=== PATIENT | female | born 1980 | race Caucasian/White ===

== ENCOUNTER 2024-10-22 07:39 | Outpatient (OUT) | payer OTHER, SELFPAY ==
[2024-10-22 08:08] LABS: Basophils Absolute Auto 0.1 10^3/uL (0.0-0.1); Basophils Percent Auto 1.1 % (0.2-2.0); Eosinophils Absolute Auto 0.1 10^3/uL (0.0-0.7); Eosinophils Percent Auto 0.9 % (0.9-7.0); Hematocrit 42.4 % (36.0-48.0); Hemoglobin 14.4 g/dL (12.0-16.0); Immature Granulocytes Abs Auto 0.02 10^3/uL (0.00-0.03); Immature Granulocytes Pct Auto 0.3 % (0.0-0.5); Lymphocytes Absolute Auto 1.1 10^3/uL (1.2-3.8); Lymphocytes Percent Auto 16.9 % (20.5-60.0); Mean Corpuscular Hemoglobin 32.3 pg (26.7-34.0); Mean Corpuscular Volume 95.1 fL (81.0-99.0); Mean Platelet Volume 10.3 fL (9.5-13.5); Monocytes Absolute Auto 0.4 10^3/uL (0.3-0.8); Monocytes Percent Auto 6.5 % (1.7-12.0); Neutrophils Absolute Auto 4.8 10^3/uL (1.4-6.5); Neutrophils Percent Auto 74.3 % (43.0-75.0); Platelet Count 191 10^3/uL (150-450); Red Blood Count 4.46 10^6/uL (4.20-5.40); Red Cell Distribution Width 12.4 % (11.0-15.0); White Blood Count 6.5 10^3/uL (4.0-11.0)
[2024-10-22 09:33] LABS: Estimated Average Glucose 94 mg/dL; Glycohemoglobin A1C 4.9 % (4.5-6.2)
[2024-10-22 09:46] LABS: Alanine Aminotransferase 28 U/L (14-59); Albumin Globulin Ratio 1.3; Albumin Level 4.4 g/dL (3.4-5.0); Alkaline Phosphatase 65 U/L (46-116); Anion Gap 12.8; Aspartate Amino Transferase 21 U/L (15-37); BUN Creatinine Ratio 31.5; Bilirubin Total 0.7 mg/dL (0.2-1.0); Calcium 9.4 mg/dL (8.5-10.1); Carbon Dioxide 28.3 mmol/L (21.0-32.0); Chloride 104 mmol/L (98-107); Chol HDL Ratio 2.8; Cholesterol 196 mg/dL (<=200); Estimated GFR (African America >60 (>=60 mL/min/1.73m^2); Estimated GFR (Non-African Ame >60 (>=60 mL/min/1.73m^2); Globulin 3.4 g/dL; Glucose 87 mg/dL (74-106); HDL Cholesterol 70 mg/dL (40-60); Potassium 4.1 mmol/L (3.5-5.1); Sodium 141 mmol/L (136-145); Total Protein 7.8 g/dL (6.4-8.2); Triglycerides 84 mg/dL (<=150); VLDL CHOLESTEROL 16.8 mg/dL
[2024-10-22 10:15] LABS: Free T4 0.93 ng/dL (0.76-1.46)
[2024-10-23 03:08] LABS: Insulin 4.4 uIU/mL (2.6-24.9)
== END 2024-10-22 07:40 | disposition home or self-care (01) ==
PROVIDERS: PCP Family Medicine
DX: R63.5 Abnormal weight gain (principal); E03.9 Hypothyroidism, unspecified
CPT/HCPCS: 36415; 80053; 80061; 83036; 83525; 84439; 84443; 85025

== ENCOUNTER 2024-11-18 08:32 | Outpatient (OUT) | payer OTHER, SELFPAY ==
--- NOTE | 2024-11-18 08:35 | MM_ITS ---
Patient Name: SARAH DE LUNA MR#: [id number] : 1980 Exam Date: 11/18/2024 Ordering Doctor: DR. FLORENCIA TORRES D.O. RADIOLOGY REPORT PROCEDURE: MM TOMOSYNTHESIS SCREENING BI COMPARISON: MM TOMOSYNTHESIS SCREENING BI, 11/16/2023. MG MAMM SCREEN 3D KAREN CAD, 11/02/2022. MG MAMM SCREEN 3D KAREN CAD, 08/30/2021. MG MAMM SCREEN KAREN W CAD, 08/24/2020. INDICATIONS: Screening Calculator Name NCI Breast Cancer Risk Assessment Tool 5 Year Breast Cancer Risk 1.20% Lifetime Breast Cancer Risk 10.40% Personal Breast Cancer No Personal Ovarian Cancer No Treatments None Family Cancers Father with kidney cancer at age 67; Grandfather-paternal with lung cancer at age ~65; Grandmother-maternal with cervical cancer at age ~67; Mother with skin cancer at age 64. LOCATION: [facility] BREAST COMPOSITION: The breasts are heterogeneously dense,which may obscure small masses. FINDINGS: DIAGNOSTIC CATEGORY 0--INCOMPLETE: NEED ADDITIONAL IMAGING EVALUATION. LEFT BREAST: No significant suspicious finding. Asymmetry medial aspect of the right breast, middle depth on cc view only. RECOMMENDATIONS: ADDITIONAL MAMMOGRAPHIC VIEWS REQUIRED: RIGHT BREAST - spot-compression/true lateral views , possible ultrasound recommended. PLEASE NOTE: A NORMAL MAMMOGRAM DOES NOT EXCLUDE THE POSSIBILITY OF BREAST CANCER. A CLINICALLY SUSPICIOUS PALPABLE LUMP SHOULD BE BIOPSIED. Dictated by: Jose Kamara DO on 11/18/2024 at 15:33 Approved by: Jose Kamara DO on 11/18/2024 at 15:38
== END 2024-11-18 08:33 | disposition home or self-care (01) ==
LOC: MAMMO 08:33
PROVIDERS: PCP Family Medicine; Visit Provider Obstetrics & Gynecology
DX: Z12.31 Encounter for screening mammogram for malignant neoplasm of breast (principal); Z80.51 Family history of malignant neoplasm of kidney; Z80.1 Family history of malignant neoplasm of trachea, bronchus and lung; Z80.8 Family history of malignant neoplasm of other organs or systems; R92.8 Other abnormal and inconclusive findings on diagnostic imaging of breast
CPT/HCPCS: 77063; 77067

== ENCOUNTER 2025-05-16 08:30 | Outpatient (OUT) | payer OTHER, SELFPAY ==
--- OUTSIDE RECORDS SUMMARY | 2025-05-16 08:33 | XMS_ITS | Clinical Summary ---
Author Organization [email or web address] Address [facility] [id number] [address] [place] [address] Care Team Providers Care Elevator Operator Service Name Role Phone Unavailable Primary Care Provider Unavailabl e Social History Tobacco Use Types Packs/Day Years Used Date Smoking Tobacco: Never Assessed Childcare Answer Date Recorded Childcare Unknown 02/19/2019 Employment Answer Date Recorded Employment Unknown 02/19/2019 Purpose - Life Answer Date Recorded Purpose and direction in life Unknown Comments Unknown Sex and Gender Information Value Date Recorded Sex Assigned at Not on file Legal Sex Female 6:51 PM EDT Gender Identity Not on file Sexual Orientation Not on file Plan of Treatment Health Maintenance Due Date Last Done Comments Depression Screening 1990 Tobacco Screening 1990 Adult BMI Screening 1996 DTaP,Tdap and Td Vaccines (1 - Tdap) 1997 Pap Smear 12/02/1999 Influenza Vaccine 05/12/2025 Medical Devices Not on file Insurance [employer]
--- OUTSIDE RECORDS SUMMARY | 2025-05-16 08:33 | XMS_ITS | Encounter Summary ---
Author Organization [facility] Address [address] [place] [address] Care Team Providers Care Sourcing Internship Name Role Phone Mata Emery DO Primary Care Provider +1- [phone] Mata Emery DO Unavailable [phone] Encounter Details Date Type Department Care Team (Late st Contact Info) Description 04/06/2023 Abstract [facility] [address] [place] [address] Mata Emery, DO [address] Luis Manuel [address] [place] [address] Social History Tobacco Use Types Packs/Day Years Used Date Smoking Tobacco: Never Smokeless Tobacco: Never Alcohol Use Standard Drinks/Week Comments Yes 1 (1 standard drink = 0.6 oz pur e alcohol) PHQ-2 Answer Date Recorded Patient Health Questionnaire-2 Score 0 04/06/2023 Comments Unknown Sex and Gender Information Value Date Recorded Sex Assigned at Not on file Legal Sex Female 7:11 PM EDT Gender Identity Not on file Sexual Orientation Not on file documented as of this encounter Functional Status * Over the past 2 weeks, how often have you been bothered by any of the following problems? Question Answer Date of Assessment Author Little interest or pleasure in doing things Not at all 04/06/2023 11:10 AM EDT Kayce Meneses L PN Feeling down, depressed, or hopeless Not at all 04/06/2023 11:10 AM EDT Kayce Meneses L PN Patient Health Questionnaire -2 Score 0 04/06/2023 11:10 AM EDT Kayce Meneses L PN documented as of this encounter Plan of Treatment Upcoming Encounters Date Type Department Care Team (Late st Contact Info) Description 03/18/2026 9:45 AM EDT Office Visit [facility] [address] [place] MANUEL D [address] [phone] Judith Jacob DO [address] [phone] documented as of this encounter Visit Diagnoses Not on filedocumented in this encounter Care Teams Sourcing Internship Relationship Specialty Start Date End Date Mata Emery DO [address] Luis Manuel [address] [place] [address] PCP - General Family Medicine 04/06/23 Mata Emery DO [address] Luis Manuel [address] [place] [address] PCP - Juan José Commercial 05/12/23 documented as of this encounter
--- OUTSIDE RECORDS SUMMARY | 2025-05-16 08:33 | XMS_ITS | Encounter Summary ---
Author Organization [facility] Address [address] [place] [address] Care Team Providers Care Oyster Washer Name Role Phone Mata Emery DO Primary Care Provider [phone]- [phone] Encounter Details Date Type Department Care Team (Late st Contact Info) Description 11/06/2024 Abstract [facility] [address] [place] [phone] Mata Emery DO [address] Luis Manuel [address] [place] [address] Social History Tobacco Use Types Packs/Day Years Used Date Smoking Tobacco: Never Smokeless Tobacco: Never Alcohol Use Standard Drinks/Week Comments Yes 1 (1 standard drink = 0.6 oz pur e alcohol) caffeine intake : soda weekly PHQ-2 Answer Date Recorded Patient Health Questionnaire-2 Score 0 03/12/2024 Comments No Sex and Gender Information Value Date Recorded Sex Assigned at Not on file Legal Sex Female 7:11 PM EDT Gender Identity Not on file Sexual Orientation Not on file documented as of this encounter Plan of Treatment Upcoming Encounters Date Type Department Care Team (Late st Contact Info) Description 03/18/2026 9:45 AM EDT [facility] [address] [place] MANUEL D [address] [address] Judith Jacob DO [address] [address] documented as of this encounter Visit Diagnoses Not on filedocumented in this encounter Care Teams Oyster Washer Relationship Specialty Start Date End Date Mata Emery DO [address] [facility] [address] [place] [address] PCP - General Family Medicine 04/06/23 documented as of this encounter
--- OUTSIDE RECORDS SUMMARY | 2025-05-16 08:33 | XMS_ITS | Encounter Summary ---
Author Organization [facility] Address [address] [place] [address] Care Team Providers Care Metal Bumper Name Role Phone Mata Emery Alejandro MAGDALENO Primary Care Provider [phone]- [phone] Encounter Details Date Type Department Care Team (Late st Contact Info) Description 07/03/2024 Orders Only [facility] [address] [facility] Medical [address] [address] Judith Jacob DO [address] [address] Social History Tobacco Use Types Packs/Day Years [...] EDT Office Visit [facility] [address] [facility] [address] [address] Judith Jacob DO [address] [address] documented as of this encounter Procedures Procedure Name Priority Date/Time Associated Diagnosis Comments CBC WITH AUTO DIFFERENTIAL Routine 07/03/2024 11:23 AM EDT ABO GROUP AND RH TYPE Routine 07/03/2024 11:23 AM EDT COMPREHENSIVE METABOLIC PANEL Routine 07/03/2024 11:23 AM EDT CBC WITH AUTO DIFFERENTIAL Routine 07/01/2024 11:21 AM EDT ABO GROUP AND RH TYPE Routine 07/01/2024 11:21 AM EDT COMPREHENSIVE METABOLIC PANEL Routine 07/01/2024 11:21 AM EDT documented in this encounter Results * CBC auto differential (07/03/2024 11:23 AM EDT) Blood Venous blood specimen / Unknown [employer] DO LAB BLOOD ORDERABLES Final Result * Comprehensive metabolic panel (07/03/2024 11:23 AM EDT) Blood Venous blood specimen / Unknown [employer] NataprMolecule Softwarera DO LAB BLOOD ORDERABLES Final Result * ABO/Rh (07/03/2024 11:23 AM EDT) Blood Venous blood specimen / Unknown [employer] DO LAB BLOOD ORDERABLES Final Result * CBC auto differential (07/01/2024 11:21 AM EDT) Blood Venous blood specimen / Unknown [employer] Nataprawira DO LAB BLOOD ORDERABLES Final Result * Comprehensive metabolic panel (07/01/2024 11:21 AM EDT) Blood Venous blood specimen / Unknown [employer] Nataprawira DO LAB BLOOD ORDERABLES Final Result * ABO/Rh (07/01/2024 11:21 AM EDT) Blood Venous blood specimen / Unknown Judith Jacob DO LAB BLOOD ORDERABLES Final Result documented in this encounter Visit Diagnoses Not on filedocumented in this encounter Care Teams Metal Bumper Relationship Specialty Start Date End Date Mata Emery DO [address] [facility] 230 [place] [address] PCP - General Family Medicine 04/06/23 documented as of this encounter
--- OUTSIDE RECORDS SUMMARY | 2025-05-16 08:33 | XMS_ITS | Encounter Summary ---
Author Organization [facility] Address [address] [place] [address] Care Team Providers Care Animal Damage Control Agent Name Role Phone Mata Emery DO Primary Care Provider [phone]- [phone] Encounter Details Date Type Department Care Team (Late st Contact Info) Description 07/31/2024 Abstract [facility] [address] [address] [place] [phone] Mata Emery DO [address] Luis Manuel [address] [place] [address] Social History Tobacco Use Types Packs/Day Years [...] AM EDT Office Visit [facility] [address] [place] MANUEL D [address] [address] Judith Jacob DO [address] [phone] documented as of this encounter Visit Diagnoses Not on filedocumented in this encounter Care Teams Animal Damage Control Agent Relationship Specialty Start Date End Date Mata Emery DO [address] [facility] [address] [place] [address] PCP - General Family Medicine 04/06/23 documented as of this encounter
--- OUTSIDE RECORDS SUMMARY | 2025-05-16 08:33 | XMS_ITS | Encounter Summary ---
Author Organization [facility] Address [address] [place] [address] Care Team Providers Care Clamp Operator Name Role Phone Mata Emery DO Primary Care Provider +1- [phone] Encounter Details Date Type Department Care Team (Late Contact Info) Description 11/11/2024 Orders Only [facility] [address] [facility] Medical [address] [address] Stephanie Quiroz MA Other screening mammogram Social History Tobacco Use Types Packs/Day Years [...] Encounters Date Type Department Care Team (Late Contact Info) Description 03/18/2026 9:45 AM EDT Office Visit [facility] [address] [facility] [address] [phone] Judith Jacob DO [address] [place] [address] [place] [address] documented as of this encounter Visit Diagnoses Diagnosis Other screening mammogram documented in this encounter Care Teams Clamp Operator Relationship Specialty Start Date End Date Mata Emery DO [address] [facility] 230 [place] [address] PCP - General Family Medicine 04/06/23 documented as of this encounter
--- OUTSIDE RECORDS SUMMARY | 2025-05-16 08:33 | XMS_ITS | Encounter Summary ---
Author Organization [facility] Address [address] [place] [address] Care Team Providers Care Kiln Head House Operator Name Role Phone Mata Emery DO Primary Care Provider +1- [phone] Encounter Details Date Type Department Care Team (Late st Contact Info) Description 12/04/2024 Abstract [facility] [address] MAN[address] [place] [phone] Mata Emery DO [address] Luis Manuel [address] [place] [address] Social History Tobacco Use Types Packs/Day Years [...] AM EDT Office Visit [facility] [address] [place] MANUEL D [address] [phone] Judith Jacob DO [address] [phone] documented as of this encounter Visit Diagnoses Not on filedocumented in this encounter Care Teams Kiln Head House Operator Relationship Specialty Start Date End Date Mata Emery DO [address] [facility] 230 [place] [address] PCP - General Family Medicine 04/06/23 documented as of this encounter
--- OUTSIDE RECORDS SUMMARY | 2025-05-16 08:33 | XMS_ITS | Encounter Summary ---
Author Organization [facility] Address [address] [place] [address] Care Team Providers Care Flattening Machine Operator Name Role Phone Mata Emery DO Primary Care Provider +1- [phone] Encounter Details Date Type Department Care Team (Late Contact Info) Description 03/19/2024 Orders Only [facility] [address] [facility] Medical [address] [address] Stephanie Quiroz MA Social History Tobacco Use Types Packs/Day Years [...] EDT Office Visit [facility] [address] [facility] [address] [address] Judith Jacob DO [address] [address] documented as of this encounter Visit Diagnoses Not on filedocumented in this encounter Care Teams Flattening Machine Operator Relationship Specialty Start Date End Date Mata Emery DO [address] [facility] [address] [place] [phone] PCP - General Family Medicine 04/06/23 documented as of this encounter
--- OUTSIDE RECORDS SUMMARY | 2025-05-16 08:33 | XMS_ITS | Encounter Summary ---
Author Organization [facility] Address [address] [place] [address] Care Team Providers Care Dobie Worker Name Role Phone Mata Emery DO Primary Care Provider +1- [phone] Encounter Details Date Type Department Care Team (Late Contact Info) Description 11/20/2024 Orders Only [facility] [address] [place] MAN[address] [place] [address] Mata Emery DO [address] Luis Manuel [address] [place] [address] Social History Tobacco Use Types Packs/Day Years [...] EDT Office Visit [facility] [address] [place] MANUEL D [address] [address] Judith Jacob DO [address] [address] documented as of this encounter Procedures Procedure Name Priority Date/Time Associated Diagnosis Comments BI MAMMOGRAM SCREENING BILATERAL Routine 11/18/2024 10:07 AM EDT documented in this encounter Results * Bilateral screening mammogram (11/18/2024 10:07 AM EDT) Anatomical Region Laterality Modality Breast Bilateral Mammography us Mata Emery DO IMG BI PROCEDURES Final Re sult documented in this encounter Visit Diagnoses Not on filedocumented in this encounter Care Teams Dobie Worker Relationship Specialty Start Date End Date Mata Emery DO [address] [facility] [address] [place] [phone] PCP - General Family Medicine 04/06/23 documented as of this encounter
--- OUTSIDE RECORDS SUMMARY | 2025-05-16 08:33 | XMS_ITS | Encounter Summary ---
Author Organization [facility] Address [address] [place] [address] Care Team Providers Care Tuber Helper Name Role Phone Mata Emery DO Primary Care Provider +1- [phone] Reason for Visit * Reason Comments Med Refill Encounter Details Date Type Department Care Team (Late Contact Info) Description 03/24/2025 [facility] [address] [place] [address] [place] [address] Mata Emery DO [address] Luis Manuel [address] [place] [address] Acquired hypothyroidism Social History Tobacco Use Types Packs/Day Years [...] AM EDT Office Visit [facility] [address] [place] MAN[place] D [address] [phone] Judith Jacob DO [address] [address] documented as of this encounter Visit Diagnoses Diagnosis Acquired hypothyroidism Unspecified hypothyroidism documented in this encounter Care Teams Tuber Helper Relationship Specialty Start Date End Date Mata Emery DO [address] [address] PCP - General Family Medicine 04/06/23 documented as of this encounter
--- OUTSIDE RECORDS SUMMARY | 2025-05-16 08:33 | XMS_ITS | Clinical Summary ---
Author Organization [facility] Address [address], [address] [place] [address] Care Team Providers Care Senior Solutions Architect Name Role Phone Mata Emery DO Primary Care Provider +1- [phone] Allergies Active Allergy Reactions Criticality Noted Date Comments Codeine High 12/30/2016 Tetracycline High 12/30/2016 Medications SYNTHROID 25 MCG tablet Take 1 tablet by mouth daily 09/15/2019 Active spironolactone (ALDACTONE) 25 MG tablet Take 1 tablet by mouth daily 08/26/2019 Active Social History Tobacco Use Types Packs/Day Years Used Date Smoking Tobacco: Never Smokeless Tobacco: Never Comments Unknown Sex and Gender Information Value Date Recorded Sex Assigned at Not on file Legal Sex Female 6:14 PM EST Gender Identity Not on file Sexual Orientation Not on file Last Filed Vital Signs Vital Sign Reading Time Taken Comments Blood Pressure 125/74 10/31/2019 10:39 AM EST Pulse 80 10/31/2019 10:39 AM EST Temperature - - Respiratory Rate - - Oxygen Saturation - - Inhaled Oxygen Concentration - - Weight 65.8 kg (145 lb) 10/31/2019 10:39 AM EST stated Height 172.7 cm (5' 8 ) 10/31/2019 10:39 AM EST stated Body Mass Index 22.05 10/31/2019 10:39 AM EST Plan of Treatment Not on file Care Teams Senior Solutions Architect Relationship Specialty Start Date End Date Mata Emery DO PCP - General 05/22/15
--- OUTSIDE RECORDS SUMMARY | 2025-05-16 08:33 | XMS_ITS | Clinical Summary ---
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 3 Active tretinoin (Retin-A) 0.01 % gel Apply topically at bedtime. Active Multiple Vitamin (MULTIVITAMIN PO) Take by mouth Active Cholecalciferol (Vitamin D) 10 MCG/ML liquid Take by mouth Ac tive fluocinolone (Synalar) 0.01 % external solution APPLY TO AFFECTED AREAS OF IRRITATION DAILY IF NEEDED FOR FLARES 3 Active dexAMETHasone (Decadron) 6 MG tabletIndications: Non-recurrent acute suppurative otitis media of right ear without spontaneous rupture of tympanic membrane Take 1 tablet (6 mg) by mouth Daily for 7 days 7 tablet 4 Active nystatin-triamcino lone (Mycolog II) creamIndications:V ulvar irritation Apply topically 2 (two) times a day To affected area as needed 15 g 4 Active levothyroxine (Synthroid, Levoxyl) 25 MCG tabletIndications: Acquired hypothyroidism Take 1 tablet (25 mcg) by mouth in the morning. Take before meals. 90 tablet 1 5 026 Active estradiol (Reyna) 0.05 MG/24HRIndications :Postmenopausal HRT (hormone replacement therapy),Night sweats Place 1 patch on the skin 1 (one) time per week 12 patch 3 Active Active Problems Problem Noted Date Diagnosed Date Acquired hypothyroidism 04/06/2023 Reactive airway disease without complication Resolved Problems Problem Noted Date Diagnosed Date Resolved Date Asthmatic bronchitis 04/06/2023 023 Chronic fatigue 04/06/2023 04/06/2023 Encounters Date Type Department Care Team Description 03/24/2025 Refill [facility] [address] [place] [address] Mata Emery DO Acquired hypothyroidism 03/20/2025 [facility]phone [facility] [address] [place] [id number] Lucila Cueto LPN 03/17/2025 8:30 AM EDT Office Visit [facility] [address] [place] [address] Judith Jacob DO Encounter for gynecological examination without abnormal finding (Primary Dx); Postmenopausal HRT (hormone replacement therapy); Night sweats; History of robot-assisted laparoscopic hysterectomy; Screening breast examination 03/17/2025 Travel from Last 3 Months Family History Medical History Relation Name Comments No Known Problems Daughter Diabetes Father Hypertension Father Kidney cancer Father Breast cancer Maternal Grandmother Cervical cancer Maternal Grandmother Skin cancer Mother Breast cancer Other No Known Problems Son Relation Name Status Comments Brother Alive 1 brother Daughter Alive 1 daughter Father Alive Maternal Grandmother Mother Alive Other great grandma m aternal Son Alive 1 son Social History Tobacco Use Types Packs/Day Years Used Date Smoking Tobacco: Never Smokeless Tobacco: Never Tobacco Cessation:Counseling Given: Yes Alcohol Use Standard Drinks/Week Comments Yes 1 [...] Sign Reading Time Taken Comments Blood Pressure 114/70 03/17/2025 8:40 AM EDT Pulse 91 11/23/2023 3:42 PM EDT Temperature 36.8 C (98.2 F) 11/23/2023 3:42 PM EDT Respiratory Rate - - Oxygen Saturation 99% 11/23/2023 3:42 PM EDT Inhaled Oxygen Concentration - - Weight 72.6 kg (160 lb) 03/17/2025 8:40 AM EDT Height 170.2 cm (5' 7 ) 11/23/2023 3:42 PM EDT Body Mass Index 25.06 11/23/2023 3:42 PM EDT Plan of Treatment Upcoming Encounters Date Type Department Care Team (Late st Contact Info) Description 03/18/2026 9:45 AM EDT Office Visit [facility] [address] [phone] Judith Jacob DO [address] [phone] Health Maintenance Due Date Last Done Comments CT Colonography 1978 Colonoscopy 1978 FIT 1978 FOBT 1978 Sigmoidoscopy 1978 Influenza Vaccine (#1) 2025 Mammogram 11/18/2025 11/18/2024, 03/0 03/2024, 11/02/2022, Additional history exists Colorectal Cancer Screening 01/22/2027 FIT-DNA 01/22/2027 01/23/2024 HPV/Cotest Discontinued 06/25/2018 Cervical Cancer Screening Discontinued Pap Smear Discontinued 09/07/2022 Procedures Procedure Name Priority Date/Time Associated Diagnosis Comments BI MAMMOGRAM SCREENING BILATERAL Routine 11/18/2024 10:07 AM EDT LAB COLOGUARD COLON CANCER SCREEN Routine 01/23/2024 9:11 AM EDT Screening for colorectal cancer PAP SMEAR Routine 09/07/2022 12:00 AM EST THINPREP AND HPV Routine 06/25/2018 12:0 0 PM EDT from Last 3 Months or Most Recently Relevant to Health Maintenance Results * Bilateral screening mammogram (11/18/2024 10:07 AM EDT) Anatomical Region Laterality Modality Breast Bilateral Mammography Mata Emery DO IMG BI PROCEDURES Final Re sult * Cologuard?? colon cancer screening (01/23/2024 9:11 AM EDT) NONINV COLON CA DNA+OCC BLD SCRN STL-IMP Negative Negative 01/30/2024 8:26 PM EDT [facility] (CLIA #:[id number]) Comment: NEGATIVE TEST RESULT. A negative Cologuard result indicates a low likelihood that a colorectal cancer (CRC) or advanced adenoma (adenomatous polyps with more advanced pre-malignant features) is present. The chance that a person with a negative Cologuard test has a colorectal cancer is less than 1 in 1500 (negative predictive value >99.9%) or has an advanced adenoma is less than 5.3% (negative predictive value 94.7%). These data are based on a prospective cross-sectional study of 10,000 individuals at average risk for colorectal cancer who were screened with both Cologuard and colonoscopy. (Casper Gross al, N Engl J Med 2014;370(14):7066-8763) The normal value (reference range) for this assay is negative. COLOGUARD RE-SCREENING RECOMMENDATION: Periodic colorectal cancer screening is an important part of preventive healthcare for asymptomatic individuals at average risk for colorectal cancer. Following a negative Cologuard result, the [place] [employer] Society and U.S. Multi-Society Task Force screening guidelines recommend a Cologuard re-screening interval of 3 years. References: [place] [employer] Guideline for Colorectal Cancer Screening: https://www.cancer.org/cancer/cciaq-wntotb-tiquhv/erhflndjd-wtlmcqyhf-qvdfqyq/ac s-rec ommendations.html.; Nestor HENDRICKSON, Christal SILVA, Meche MOISE, Colorectal Cancer Screening: Recommendations for Physicians and Patients from the U.S. Multi-Society Task Force on Colorectal Cancer Screening , Am J Gastroenterology 2017; 112:3070-4745. TEST DESCRIPTION: Composite algorithmic analysis of stool DNA-biomarkers with hemoglobin immunoassay. Quantitative values of individual biomarkers are not reportable and are not associated with individual biomarker result reference ranges. Cologuard is intended for colorectal cancer screening of adults of either sex, 45 years or older, who are at average-risk for colorectal cancer (CRC). Cologuard has been approved for use by the U.S. FDA. The performance of Cologuard was established in a cross sectional study of average-risk adults aged 50-84. Cologuard performance in patients ages 45 to 49 years was estimated by sub-group analysis of near-age groups. Colonoscopies performed for a positive result may find as the most clinically significant lesion: colorectal cancer [4.0%], advanced adenoma (including sessile serrated polyps greater than or equal to 1cm diameter) [20%] or non- advanced adenoma [31%]; or no colorectal neoplasia [45%]. These estimates are derived from a prospective cross-sectional screening study of 10,000 individuals at average risk for colorectal cancer who were screened with both Cologuard and colonoscopy. (Casper Bain et al, N Engl J Med 2014;370(14):5591-1308.) Cologuard may produce a false negative or false positive result (no colorectal cancer or precancerous polyp present at colonoscopy follow up). A negative Cologuard test result does not guarantee the absence of CRC or advanced adenoma (pre-cancer). The current Cologuard screening interval is every 3 years. ([place] [employer] and U.S. Multi-Society Task Force). Cologuard performance data in a 10,000 patient pivotal study using colonoscopy as the reference method can be accessed at the following location: [email or web address]/results. Additional description of the Cologuard test process, warnings and precautions can be found at www.[employer].com. Stool specimen (specimen) 01/23/2024 9:11 AM EDT 01/24/2024 2:13 PM EDT Mata Emery DO LAB MOLECULAR DIAGNOSTICS ORDERABLES Final Result [facility] (CLIA #:[id number]) [place] [address], * Pap Smear (09/07/2022 12:00 AM EST) Swab Cervical swab / Unknown us Judith Storm Nataprawira DO LAB CYTOLOGY ORDERABLES Fi nal Result Performing Organization Address City/[facility]/ZIP Co de Phone Number [facility] * THINPREP AND HPV (06/25/2018 12:00 PM EDT) PAP RESULTS ssi [facility] SSI ssi [facility] 06/25/2018 12:0 0 PM EDT Mata Emery DO [facility] Final Resu lt Performing Organization Address [facility] Co de Phone Number [facility] from Last 3 Months or Most Recently Relevant to [place] [address] Care Teams Plaster Mold Maker Relationship Specialty Start Date End Date Mata Emery DO [address] [place] [address] PCP - General Family Medicine 04/06/23
--- OUTSIDE RECORDS SUMMARY | 2025-05-16 08:46 | XMS_ITS | CCD ---
Author Organization [facility] Care Team Providers Care Television Antenna Installer Name Role Phone JESENIA ., DR MIN Attending Unavailabl e LISBET CARMICHAEL Primary Care Unavailable JESENIA ., DR MIN Admitting Unavailabl e KARKATHIA ., DR MIN Consulting Unavailabl e ERMAEBALEIDA, DR CHRISTOPHE Walker Consulting Unavailable LISBET CARMICHAEL Primary Care Unavailable KARKATHIA ., DR MIN Attending Unavailabl e KARROBELK ., DR MIN Admitting Unavailabl e KARKATHIA ., DR MIN Consulting Unavailabl e PetznLisbet taylor DO Primary Care Provider [phone] LISBET CARMICHAEL Primary Care Physician DO Judith Jacob Referring Unavaila ble NatDO Judith ingram Attending Unavaila ble DO Judith Jacob. Admitting Unavaila ble Judith Jacob Referring Unavailable Dayday Jacoba J. Admitting Unavailable Judith Jacob. Attending Unavailable Judith Jacob. Referring Unavailable NataprDayday cervantesa J. Admitting Unavailable Nataprbilly Judith J. Attending Unavailable Nataprbilly DO Judith J. Admitting Unavaila ble Natnataly DO Judith J. Attending Unavaila ble Cecil DO Judith Storm. Referring Unavaila ble NatDayday ingrama J. Admitting Unavailable Cecil, Judith J. Attending Unavailable Judith Jacob. Referring Unavailable CECIL, JUDITH J Attending Unavailable JUDITH JACOB J Attending Unavailable JUDITH JACOB Attending Unavailable Allergies Allergy Classification Reported Allergen(s) Allergy Type Date of Onset Reaction(s) Facility (3 sources) Codeine; Translations: [codeine] Drug Allergy 7 [facility] Repository (1 source) Tetracycline Drug Allergy 7 [facility] Repository (9 sources) Codeine; Translations: [codeine] Drug Allergy 7 Unknown, Vomiting (disorder) [facility] (6 sources) Tetracycline Drug Allergy 7 Unknown [facility] (5 sources) Tetracyclines; Translations: [tetracyclines] Drug allergy Rash [facility] Medications Current Medications Medication Drug Class(es) Dates Sig (Normalized) Sig (Original) acetaminophen 500 mg oral tablet (2 sources) Start: 07-25-2024 take 2 tablets by mouth every six hours as needed for fever acetaminophen 500 mg Tab 1,000 mg = 2 tab(s), Oral, q6hr, PRN as needed for fever, # 60 tab(s), Refills(s) 1, Pharmacy: [id number], 172, cm, 07/01/24 12:56:00 EDT, Height/Length Dosing, 74, kg, 07/01/24 12:56:00 EDT, Weight Dosing Start Date: 07/25/24 Status: Ordered Quantity: 60.0 Unit: tab(s) Repeat number: 2 Albuterol (Eqv-ProAir HFA) 90 mcg/inh inhalation aerosol (3 sources) Start: 07-01-2024 take 2 puff(s) by inhalation every six hours Albuterol (Eqv-ProAir HFA) 90 mcg/inh inhalation aerosol 2 puff(s), Inhalation, q6hr Wheezing, Refill(s) 0 Start Date: 07/01/24 Status: Ordered Repeat number: 1 Start: 07-01-2024 take 2 puff(s) by in halation every six hours Albuterol (Eqv-ProAir HFA) 90 mcg/inh inhalation aerosol 2 puff(s), Inhalation, q6hr Wheezing, Refill(s) 0 Start Date: 07/01/24 Status: Ordered cholecalciferol 0.01 mg/ml oral solution (6 sources) Vitamin D Cholecalciferol (Vitamin D) 10 MCG/ML liquid Take by mouth Active dexamethasone 6 mg oral tablet (6 sources) Corticosteroid Start: take 1 tablet by mouth once daily dexAMETHasone (Decadron) 6 MG tablet Indications: Non-recurrent acute suppurative otitis media of right ear without spontaneous rupture of tympanic membrane Take 1 tablet (6 mg) by mouth Daily for 7 days 7 tablet 11/23/2023 Active docusate sodium 100 mg oral capsule (2 sources) Start: take 1 capsule by mouth once daily Colace 100 mg Cap 100 mg = 1 cap(s), Oral, Daily, # 30 cap(s), Refills(s) 1, Pharmacy: [id number], 172, cm, 07/01/24 12:56:00 EDT, Height/Length Dosing, 74, kg, 07/01/24 12:56:00 EDT, Weight Dosing Start Date: 07/25/24 Status: Ordered Quantity: 30.0 Unit: cap(s) Repeat number: 2 fluocinolone acetonide 0.1 mg/ml topical solution (6 sources) Corticosteroid Start: fluocinolone (Synalar) 0.01 % external solution APPLY TO AFFECTED AREAS OF IRRITATION DAILY IF NEEDED FOR FLARES 08/16/2023 Active ibuprofen 600 mg oral tablet (2 sources) Nonsteroidal Anti-inflammatory Drug Start: take 1 tablet by mouth every six hours ibuprofen 600 mg Tab 600 mg = 1 tab(s), Oral, q6hr, # 60 tab(s), Refills(s) 1, Pharmacy: [id number], 172, cm, 07/01/24 12:56:00 EDT, Height/Length Dosing, 74, kg, 07/01/24 12:56:00 EDT, Weight Dosing Start Date: 07/25/24 Status: Ordered Quantity: 60.0 Unit: tab(s) Repeat number: 2 levothyroxine sodium 0.025 mg oral tablet (9 sources) l-Thyroxine Start: End: 026 take 1 tablet by mouth before mealtime levothyroxine (Synthroid, Levoxyl) 25 MCG tablet Indications: Acquired hypothyroidism (CMS/HCC) Take 1 tablet (25 mcg) by mouth in the morning. Take before meals. 90 tablet 1 11/06/2024 11/01/2025 Active Start: 07-01-2024 take 1 tablet by chayito th once daily Synthroid 25 mcg(0.025 mg) Tab 25 mcg = 1 tab(s), Oral, Daily, Refills(s) 0, Thyroid Start Date: 07/01/24 Status: Ordered Repeat number: 1 Start: 11-21-2023 take 1 tablet by chayito th before mealtime levothyroxine (Synthroid, Levoxyl) 25 MCG tablet Indications: Acquired hypothyroidism (CMS/HCC) Take 1 tablet (25 mcg) by mouth in the morning. Take before meals. 90 tablet 3 11/21/2023 Active Multiple Vitamin (MULTIVITAMIN PO) (6 sources) Multiple Vitamin (MULTIVITAMIN PO) Take by mouth Active nystatin [id number] unt/ml / triamcinolone acetonide 1 mg/ml topical cream (4 sources) Polyene Antifungal, Corticosteroid Start: 024 nystatin-triamcinolon e (Mycolog II) cream Indications: Vulvar irritation Apply topically 2 (two) times a day To affected area as needed 15 g 08/29/2024 Active spironolactone 25 mg oral tablet (9 sources) Aldosterone Antagonist Start: 023 take 1 tablet by mouth once daily spironolactone 25 mg Tab 25 mg = 1 tab(s), Oral, Daily, skin, Refills(s) 0, Other (see comment) Start Date: 07/01/24 Status: Ordered Repeat number: 1 tretinoin 0.0001 mg/mg topical gel (6 sources) Retinoid tretinoin (Retin -A) 0.01 % gel Apply topically at bedtime. Active Problems Problem Classification Problem Date Documented Date Episodic/Chronic Abdominal pain (2 sources) Pain in female pelvis; Translations: [Pelvic and perineal pain] Onset: 07-25-2024 06-14-2024 Episodic Asthma (15 sources) Reactive airway disease; Translations: [Unspecified asthma, uncomplicated] Onset: 04-06-2023 Resolved: 04-06-2023 04-06-2023 Chronic Immunizations and screening for infectious disease (1 source) Encounter for screening for human papillomavirus (HPV); Translations: [ENC SCREENING HUMAN PAPILLOMAVIRUS] Onset: 09-10-2022 Episodic Malaise and fatigue (6 sources) Fatigue; Translations: [Chronic fatigue, unspecified] Onset: 04-06-2023 Resolved: 04-06-2023 04-06-2023 Chronic Menstrual disorders (4 sources) Menorrhagia; Translations: [Excessive and frequent menstruation with regular cycle] Onset: 07-25-2024 06-14-2024 Chronic Other aftercare (2 sources) Surgical follow-up; Translations: [Encounter for follow-up examination after completed treatment for conditions other than malignant neoplasm] 08-22-2024 Episodic Other circulatory disease (3 sources) Raynaud's disease 07-01-2024 Chronic Other female genital disorders (1 source) Abnormal uterine bleeding; Translations: [Abnormal uterine and vaginal bleeding, unspecified] 07-01-2024 Chronic Other female genital disorders (2 sources) Vulval irritation; Translations: [Other specified noninflammatory disorders of vulva and perineum] 08-29-2024 Episodic Other infections; including parasitic (3 sources) History of Lyme disease 07-01-2024 Episodic Other screening for suspected conditions (not mental disorders or infectious disease) (8 sources) Encounter for screening mammogram for malignant neoplasm of breast; Translations: [Encounter for screening for malignant neoplasm of cervix] Onset: 09-07-2022 Episodic Residual codes; unclassified (1 source) Family history of malignant neoplasm of kidney; Translations: [FAM HX MALIGNANT NEOPLASM KIDNEY] Onset: 11-06-2022 Episodic Residual codes; unclassified (1 source) Family history of malignant neoplasm of trachea, bronchus and lung; Translations: [FAM HX MALIG NEOPLSM TRACH BRON LNG] Onset: 11-06-2022 Episodic Residual codes; unclassified (1 source) Family history of malignant neoplasm of other organs or systems; Translations: [FAM HX MALIG NEOPLASM OTH ORGN/SYS] Onset: 11-06-2022 Episodic Thyroid disorders (9 sources) Acquired hypothyroidism; Translations: [Hypothyroidism, unspecified] Onset: 04-06-2023 04-06-2023 Chronic Results Test Name Value Interpretation Reference Range Facility MA MAMM DIAG W/CAD IF PERF A ND 3D RTon 12-04-2024 Exam Date/Time: 12/04/2024 09:27 EDT Reason for Exam: R92.8 Report IMPRESSION: BIRADS 2 BENIGN FINDINGS, NORMAL INTERVAL FOLLOW-UP. CLINICAL HISTORY: Diagnostic. Abnormal mammogram. COMPARISON: Outside mammograms from 11/18/2024, 2022, 2020. RESULT: Digital mammography and 3D tomosynthesis of right breast was performed. An ultrasound was obtained at all clock face positions and in the central/ retroareolar region of the right breast. Category C - The right breast is heterogenously dense, which may obscure small masses. The asymmetry within the medial right breast is less distinct on the diagnostic views. Ultrasound recommended. On the right breast ultrasound, there are no suspicious findings. Small benign 4 mm anechoic cyst at the 11:00 position. Vascular calcifications: Absent. CAD analysis was performed and used in the interpretation. Dense Breast: Yes Follow-up: 12 MONTH RECALL. Board Certified Radiologists. Accredited by the ACR and FDA. MAMMOGRAPHY IS VERY IMPORTANT TO YOUR HEALTH. THE [employer] [employer] GUIDELINES RECOMMEND THAT WOMEN 40 YEARS OF AGE AND OLDER SHOULD HAVE A MAMMOGRAM EVERY YEAR. A REMINDER LETTER WILL BE SENT AT THE APPROPRIATE TIME. THIS FACILITY UTILIZES A REMINDER SYSTEM TO ENSURE ALL PATIENTS RECEIVE REMINDER NOTIFICATIONS AT THE APPROPRIATE TIME BASED ON THE RECOMMENDATIONS OF THIS EXAM. THIS INCLUDES REMINDERS FOR ROUTINE SCREENING MAMMOGRAMS, DIAGNOSTIC MAMMOGRAMS IN WHICH THE PATIENT IS ASKED TO RETURN FOR ADDITIONAL VIEWS, OR OTHER BREAST IMAGING INTERVENTIONS WHEN APPROPRIATE. THE PATIENT WILL BE PLACED IN THE APPROPRIATE REMINDER SYSTEM INCLUDING A REMINDER AT THE APPROPRIATE TIME FOR ANY PENDING ADDITIONAL VIEWS. Report Ordering Provider: Judith Jacob FINAL REPORT Dictated: 12/04/2024 11:43 am Joe Gregory MD Signed (Electronic Signature): 12/04/2024 11:43 am Signed by: Joe Gregory MD Transcribed by: SONIA Technologist: [facility] Assessment: BI-RADS Category 2-Benign finding Recommendation: Normal interval follow-up [facility] Radiology, Radiologist, - 12/04/2024 Exam Date/Time: 12/04/2024 09:27 EDT Reason for Exam: R92.8 Report IMPRESSION: BIRADS 2 BENIGN FINDINGS, NORMAL INTERVAL FOLLOW-UP. CLINICAL HISTORY: Diagnostic. Abnormal mammogram. COMPARISON: Outside mammograms from 11/18/2024, 2022, 2020. RESULT: Digital mammography and 3D tomosynthesis of right breast was performed. An ultrasound was obtained at all clock face positions and in the central/ retroareolar region of the right breast. Category C - The right breast is heterogenously dense, which may obscure small masses. The asymmetry within the medial right breast is less distinct on the diagnostic views. Ultrasound recommended. On the right breast ultrasound, there are no suspicious findings. Small benign 4 mm anechoic cyst at the 11:00 position. Vascular calcifications: Absent. CAD analysis was performed and used in the interpretation. Dense Breast: Yes Follow-up: 12 MONTH RECALL. Board Certified Radiologists. Accredited by the ACR and FDA. MAMMOGRAPHY IS VERY IMPORTANT TO YOUR HEALTH. THE [place] [employer] GUIDELINES RECOMMEND THAT WOMEN 40 YEARS OF AGE AND OLDER SHOULD HAVE A MAMMOGRAM EVERY YEAR. A REMINDER LETTER WILL BE SENT AT THE APPROPRIATE TIME. THIS FACILITY UTILIZES A REMINDER SYSTEM TO ENSURE ALL PATIENTS RECEIVE REMINDER NOTIFICATIONS AT THE APPROPRIATE TIME BASED ON THE RECOMMENDATIONS OF THIS EXAM. THIS INCLUDES REMINDERS FOR ROUTINE SCREENING MAMMOGRAMS, DIAGNOSTIC MAMMOGRAMS IN WHICH THE PATIENT IS ASKED TO RETURN FOR ADDITIONAL VIEWS, OR OTHER BREAST IMAGING INTERVENTIONS WHEN APPROPRIATE. THE PATIENT WILL BE PLACED IN THE APPROPRIATE REMINDER SYSTEM INCLUDING A REMINDER AT THE APPROPRIATE TIME FOR ANY PENDING ADDITIONAL VIEWS. Report Ordering Provider: Judith Jacob FINAL REPORT Dictated: 12/04/2024 11:43 am Joe Gregory MD Signed (Electronic Signature): 12/04/2024 11:43 am Signed by: Joe Gregory MD Transcribed by: SONIA Technologist: [facility] Assessment: BI-RADS Category 2-Benign finding Recommendation: Normal interval follow-up [facility] Radiology Study observation (narrative) [facility] MA MAMM DIAG W/CAD IF PERF A ND 3D RTOrdered By: Radiologist Radiology on 12-04-2024 [facility] Work Phone: MA Mamm Diag w/CAD if perf a nd 3D RTon 12-04-2024 MA Mamm Diag w/CAD if perf and 3D RT Exam Date/Time: 12/04/2024 09:27 EDT Reason for Exam: R92.8 Report IMPRESSION: BIRADS 2 BENIGN FINDINGS, NORMAL INTERVAL FOLLOW-UP. CLINICAL HISTORY: Diagnostic. Abnormal mammogram. COMPARISON: Outside mammograms from 11/18/2024, 2022, 2020. RESULT: Digital mammography and 3D tomosynthesis of right breast was performed. An ultrasound was obtained at all clock face positions and in the central/ retroareolar region of the right breast. Category C - The right breast is heterogenously dense, which may obscure small masses. The asymmetry within the medial right breast is less distinct on the diagnostic views. Ultrasound recommended. On the right breast ultrasound, there are no suspicious findings. Small benign 4 mm anechoic cyst at the 11:00 position. Vascular calcifications: Absent. CAD analysis was performed and used in the interpretation. Dense Breast: Yes Follow-up: 12 MONTH RECALL. Board Certified Radiologists. Accredited by the ACR and FDA. MAMMOGRAPHY IS VERY IMPORTANT TO YOUR HEALTH. THE [employer] GUIDELINES RECOMMEND THAT WOMEN 40 YEARS OF AGE AND OLDER SHOULD HAVE A MAMMOGRAM EVERY YEAR. A REMINDER LETTER WILL BE SENT AT THE APPROPRIATE TIME. THIS FACILITY UTILIZES A REMINDER SYSTEM TO ENSURE ALL PATIENTS RECEIVE REMINDER NOTIFICATIONS AT THE APPROPRIATE TIME BASED ON THE RECOMMENDATIONS OF THIS EXAM. THIS INCLUDES REMINDERS FOR ROUTINE SCREENING MAMMOGRAMS, DIAGNOSTIC MAMMOGRAMS IN WHICH THE PATIENT IS ASKED TO RETURN FOR ADDITIONAL VIEWS, OR OTHER BREAST IMAGING INTERVENTIONS WHEN APPROPRIATE. THE PATIENT WILL BE PLACED IN THE APPROPRIATE REMINDER SYSTEM INCLUDING A REMINDER AT THE APPROPRIATE TIME FOR ANY PENDING ADDITIONAL VIEWS. Report Ordering Provider: Judith Jacob FINAL REPORT Dictated: 12/04/2024 11:43 am Joe Gregory MD Signed (Electronic Signature): 12/04/2024 11:43 am Signed by: Joe Gregory MD Transcribed by: SONIA Technologist: [facility] Assessment: BI-RADS Category 2-Benign finding Recommendation: Normal interval follow-up Normal [facility] US BREAST UNILATERAL RT COMP LETEon 12-04-2024 Exam Date/Time: 12/04/2024 09:53 EDT Reason for Exam: R92.8 Report IMPRESSION: Refer to concurrent diagnostic mammogram dictation. Ordering Provider: Judith Jacob FINAL REPORT Dictated: 12/04/2024 11:43 am Joe Gregory MD Signed (Electronic Signature): 12/04/2024 11:43 am Signed by: Joe Gregory MD Transcribed by: SONIA Technologist: [facility] Radiology, Radiologist, - 12/04/2024 Exam Date/Time: 12/04/2024 09:53 EDT Reason for Exam: R92.8 Report IMPRESSION: Refer to concurrent diagnostic mammogram dictation. Ordering Provider: Judith Jacob FINAL REPORT Dictated: 12/04/2024 11:43 am Joe Gregory MD Signed (Electronic Signature): 12/04/2024 11:43 am Signed by: Joe Gregory MD Transcribed by: SONIA Technologist: [facility] Radiology Study observation (narrative) [facility] US BREAST UNILATERAL RT COMP LETEOrdered By: Radiologist Radiology on 12-04-2024 [facility] Work Phone: US Breast Unilateral Rt Comp leteon 12-04-2024 US Breast Unilateral Rt Complete Exam Date/Time: 12/04/2024 09:53 EDT Reason for Exam: R92.8 Report IMPRESSION: Refer to concurrent diagnostic mammogram dictation. Ordering Provider: Judith Jacob FINAL REPORT Dictated: 12/04/2024 11:43 am Joe Gregory MD Signed (Electronic Signature): 12/04/2024 11:43 am Signed by: Joe Gregory MD Transcribed by: SONIA Technologist: [facility] Normal [facility] Surgical Pathology Reporton 07-30-2024 Surgical Pathology Report [facility] [address] [place] [address]- Surgical Pathology Report Collected Date/Time: 07/25/2024 08:40 EST Pathologist: Kenny NESS PhD, Bill Pollock Received Date/Time: 07/25/2024 12:35 EST Judith Jacob DO, DO, Mona J. 07 Surgical Pathology Report - 07/30/2024 13:01 EST - Auth (Verified) Final Diagnosis UTERUS WITH FALLOPIAN TUBES, HYSTERECTOMY WITH BILATERAL SALPINGECTOMY: - BENIGN CERVIX WITH NABOTHIAN CYSTS. - PROLIFERATIVE ENDOMETRIUM. - MYOMETRIUM WITH ADENOMYOSIS. - FALLOPIAN TUBES WITH PARATUBALCYSTS. (Electronic Signature) Bill Cox MD PhD 07/30/2024 13:01 Clinical Information Dysmenorrhea, pelvic pain Pre-Op Diagnosis: Dysmenorrhea, pelvic pain Procedure: Laparoscopic hysterectomy with bilateral salpingectomy Post-Op Diagnosis: Dysmenorrhea, pelvic pain, lower back pain, menorrhagia Specimen(s) Received Uterus, cervix and bilateral fallopian tubes Gross Description Received in formalin labeled with patient name, number, and uterus, cervix, and bilateral fallopian tubes is a symmetric hysterectomy specimen with attached fallopian tubes. The uterus is 9 x 6 x 4 cm and weighs 99 g after removal of fallopian tubes and after fixation. The serosal surface is ramirez/pink and smooth; however, on the posterior side there is a raised ramirez nodular lesion measuring 1 x 0.5 cm. On the posterior side there is a raised nodular area measuring 1.5 x 1 cm. The cervix is 3.4 cm long with a ramirez/pink erosive ectocervix measuring up to 3 cm in diameter, and the os measures up to 0.5 cm in diameter. The cervix reveals a granular cystic cervical canal. Endometrial cavity is symmetric measuring 3.5 x 2 cm. Endometrium is ramirez/reddish-brown measuring up to less than 0.5 cm in thickness. Cross-sectioning through the myometrium reveals approximately three ramirez/white whirling nodules measuring up to 0.4 cm in diameter. The assumed right fallopian tube with the attached fimbriated end overall measures 9.8 cm long and up to 0.8 cm in diameter. A paratubal cyst measuring up to 0.5 cm is present. The assumed left fallopian tube with the attached fimbriated end overall measures 7.4 cm long and up to 0.8 cm in diameter. A paratubal cyst measuring up to 0.5 cm is present. Cross-sectioning through the fallopian tubes reveals a pinpoint lumen, otherwise unremarkable. Submitted in a total of 11 cassettes: 1-2 - Anterior and posterior cervix 3 - Transition zone 4-9 - Myometrium and endometrium with the ramirez/white whirling nodules 10 - Assumed right fallopian tube, cyst, and fimbriated end 11 - Assumed left fallopian tube, fimbriated end, and cyst (DC) DC:[facility] Microscopic Description Microscopic examination performed unless gross only specified. Normal [facility] Comment on above: Performed By: #### [id number] #### [facility] [address] [place] [id number] Main OR Intraoperative Recor don 07-26-2024 Main OR Intraoperative Record Main OR Intraoperative Record IntraOp Document Type FT Summary Primary Physician: Judith Jacob DO Finalized Date/Time: 07/26/24 12:49:01 Pt. Name: DELILAH HANSENO.B./Sex: 1980 Female Med Rec #: [id number] Physician: Judith Jacob DO Financial #: [id number] Pt. Type: A Room/Bed: [facility] Admit/Disch: 07/25/24 06:01:29 - 07/25/24 13:15:00 Institution: Case Times FT Entry 1 Patient Times In Room 07/25/24 07:28:00 Out Room 07/25/24 09:39:00 Procedure Times Start 07/25/24 07:52:00 Stop 07/25/24 09:25:00 Anesthesia Times Start 07/25/24 07:28:00 Stop 07/25/24 09:39:00 Last Modified By: Padma Zimmer Ii 07/25/24 09:42:39 General Comments: ROBOT DOCK TIME 807 - 914 . SURGEON CONSOLE TIME 912. /BRITTNEY CABAN 07/26/24 Chart opened to review and send charges [facility] Case Attendance FT Entry 1 Entry 2 Entry 3 Case Attendee Arsenio Gutierrez CRNA, DO, Mona J. Kipp LPN, Yoana Cole Role Performed LUCIEN Surgeon - Primary Scrub - Primary Time In 07/25/24 07:28:00 07/25/24 07:28:00 07/25/24 07:28:00 Time Out 07/25/24 09:39:00 07/25/24 09:20:00 07/25/24 09:39:00 Procedure HYSTERECTOMY, ROBOT HYSTERECTOMY, ROBOT HYSTERECTOMY, ROBOT ASSISTED(Bilateral) ASSISTED(Bilateral) ASSISTED(Bilateral) Comments DR. LOVE ARTIFICIAL FLOWERS DYER OUT OF ROOM FOR BREAK AT 0905 Last Modified By: aPdma Zimmer Ii, Alfons Ii F Letrondo, Alfons Ii F 07/25/24 09:42:39 07/25/24 09:42:39 07/25/24 09:42:39 Entry 4 Entry 5 Entry 6 Case Attendee Trixie Billings CST, Padma Haywood Ii F Role Performed GUN MECHANIC Staff - Other Manager Business Banking - Primary Time In 07/25/24 07:28:00 07/25/24 07:28:00 07/25/24 07:28:00 Time Out 07/25/24 09:39:00 07/25/24 09:05:00 07/25/24 09:39:00 Procedure HYSTERECTOMY, ROBOT HYSTERECTOMY, ROBOT HYSTERECTOMY, ROBOT ASSISTED(Bilateral) ASSISTED(Bilateral) ASSISTED(Bilateral) Comments ASSIST UTERUS MANIPULATOR Last Modified By: Padma Zimmer Ii F Padma Zimmer Ii F Lalo Zimmerons Ii F 07/25/24 09:42:39 07/25/24 09:42:39 07/25/24 09:42:39 Entry 7 Entry 8 Case Attendee Avery Barrow CST, Sanjuana Fields Role Performed Manager Business Banking - Relief Scrub - Relief Time In 07/25/24 08:11:00 07/25/24 09:05:00 Time Out 07/25/24 08:28:00 07/25/24 09:39:00 Procedure HYSTERECTOMY, ROBOT HYSTERECTOMY, ROBOT ASSISTED(Bilateral) ASSISTED(Bilateral) Comments BREAK RELIEF BREAK RELIEF Last Modified By: Padma Zimmer Ii F Mesha Alfons Ii F 07/25/24 09:42:39 07/25/24 09:42:39 General Comments: AVERY Fields STUDENT IS IN ATTENDANCE. /BRITTNEY CABANpersonnel director Protocols FT Pre-Care Text: Implements protective measures prior to operative or invasive procedure, confirms identity before the operative or invasive procedure, verifies operative procedure, surgical site, and laterality Entry 1 Procedure(s) HYSTERECTOMY, ROBOT Patient Identity Birthday, Blood Band, ASSISTED(Bilateral) Verified (select at ID Band Check, Patient least 2): Participation Consents / H and P Anesthesia Consent, Operative Site Present Verified H&P, Surgery/Procedure Marking Verified Consent, Transfusion Consent Surgical Site Yes Laterality Verified Yes Verified Procedure Verified Yes Correct Patient Yes Position Verified Availability Equipment, Medication Prep Dry Yes Verified (If Applicable) PreOp Antibiotic Yes Time Out Arsenio Gutierrez CRNA, Given Participants Judith Jacob DO, [place] FILLING MACHINE TENDER, Yoana Cole, Trixie Billings, Tarik KELLY, Sanjuana Fields, Padma Zimmer Ii Time Out Complete 07/25/24 07:51:00 Outcomes Met? Yes Last Modified By: Padma Zimmer Ii 07/25/24 08:29:45 Post-Care Text: The patient is free from signs and symptoms of injury caused by extraneous objects Allergy Information FT Pre-Care Text: Verifies allergies Entry 1 Allergies Reviewed? Yes Allergies Reviewed Self/Patient With Outcomes Met? Yes Last Modified By: Padma Zimmer Ii 07/25/24 08:29:53 Post-Care Text: The patient received appropriate medication(s) safely administered during the perioperative period Surgical Procedures FT Entry 1 Procedure Description Procedure HYSTERECTOMY, ROBOT Modifiers Bilateral ASSISTED Surgeon Description ROBOTIC ASSISTED TOTAL HYSTERECTOMY WITH BILATERAL SALPINGECTOMY Primary Procedure Yes Primary Surgeon Judith Jacob DO Start 07/25/24 07:52:00 Stop 07/25/24 09:25:00 Anesthesia Type General Surgical Service Obstetric Gynecology Wound Class 2 - Clean-Contaminated Last Modified By: Padma Zimmer Ii 07/25/24 09:36:28 General Case Data FT Pre-Care Text: Classifies surgical wound, implements aseptic technique, initiates traffic control Entry 1 Case Information OR OR 6 FT Case Level Level 5 Wound Class 2 - Clean-Contaminated Specialty Obstetric Gynecology ASA Class 2 Preop Diagnosis DYSMENORRHEA, PELVIC Postop Same As (more content not included)... Normal [facility] ABO/Rhon 07-25-2024 ABO/Rh Positive Invalid Interpretation Code [facility] Comment on above: Performed By: #### 2 [id number] #### [facility] [address] [place] [address] ABO/Rh History Checkon 07-25 ABO/Rh History Check Verified Hx Blood Type Normal [facility] Comment on above: Performed By: #### 1 [id number] #### [facility] [address] [place] [address] ABSCon 07-25-2024 ABSC Gel Interp Negative Normal [facility] Comment on above: Performed By: #### 1 [id number] #### [facility] [address] [place] [address] BLOOD BANKOrdered By: Mary Marino on 07-25-2024 ABO/Rh Interp Positive Invalid Interpretation Code [facility] BB Subsection ABSC Gel Interp Negative (07/25/24 7:03 AM) Normal [facility] BB Subsection Blood Bank ID#on 07-25-2024 BBID# [id number] Invalid Interpretation Code [facility] Comment on above: Performed By: #### 1 [id number] #### [facility] [address] [place] [address] Discharge Instructionson Discharge Instructions Discharge Instructions DELILAH HANSEN :1980 Visit Date:07/25/2024 Inpatient Discharge Instructions Your Care Team Admitting Physician - Judith Jacob DO Referring Physician - Judith Jacob DO Reason for Your Visit DYSMENORRHEA, PELVIC PAIN, LOWER BACK PAIN, MENORRHAGIA Your Diagnosis Dysmenorrhea Female pelvic pain Heavy menstrual bleeding Tests Performed Pathology Tissue Exam -- Results Pending -- Please visit your patient portal for your results or contact your primary care physician. This Is Your Medications List acetaminophen (acetaminophen 500 mg Tab) albuterol (Albuterol (Eqv-ProAir HFA) 90 mcg/inh inhalation aerosol) docusate (Colace 100 mg Cap) ibuprofen (ibuprofen 600 mg Tab) levothyroxine (Synthroid 25 mcg(0.025 mg) Tab) spironolactone (spironolactone 25 mg Tab) What to do next Instructions From Your Doctor Event Name Event Result Discharge Activity Activity as tolerated Discharge Diet(s) Regular Call Your Doctor For Persistent or heavy bleeding, Temperature above 101.5 degrees, Redness, swelling, or pus at operative site, Severe pain at the operative site, Persistent vomiting Wound Care Keep incision dry Discharge Instructions Discharge Instructions New Follow Up Appointments after Discharge Follow Up with Judith Jacob When: Comments: Appointment has already been scheduled Where: [facility] [address] [address]- Business (1) Medications What How Much When Instructions Next Dose New acetaminophen (acetaminophen 500 mg Tab) 2 Tablets By Mouth Every 6 hours as needed for as needed for fever Refills: 1 Pickup at [facility] New docusate (Colace 100 mg Cap) 1 Capsules By Mouth Every day Refills: 1 Pickup at [facility] New ibuprofen (ibuprofen 600 mg Tab) 1 Tablets By Mouth Every 6 hours Refills: 1 Pickup at [facility] 4:49pm Unchanged albuterol (Albuterol (Eqv-ProAir HFA) 90 mcg/ inh inhalation aerosol) 2 Puffs Inhalation Every 6 hours as needed for Wheezing Unchanged levothyroxine (Synthroid 25 mcg(0.025 mg) Tab) 1 Tablets By Mouth Every day Unchanged spironolactone (spironolactone 25 mg Tab) 1 Tablets By Mouth Every day skin Pharmacy Information [facility]: [address] [place], [place] [id number] [phone] Test Results No qualifying data available. Allergies codeine (Vomiting) tetracyclines (Rash) Education Materials Total Laparoscopic Hysterectomy, Care After The following information offers guidance on how to care for yourself after your procedure. Your health care provider may also give you more specific instructions. If you have problems or questions, contact your health care provider. What can I expect after the procedure? After the procedure, it is common to have: ??? Pain, bruising, and numbness around your incisions. ??? Tiredness (fatigue). ??? Poor appetite. ??? Less interest in sex. ??? Vaginal discharge or bleeding. You will need to use a sanitary pad after this procedure. ??? Feelings of sadness or other emotions. If your ovaries were also removed, it is also common to have symptoms of menopause, such as hot flashes, night sweats, and lack of sleep (insomnia). Follow these instructions at home: Medicines ??? Take viuh-zsd-pdbnhxs and prescription medicines only as told by your health care provider. ??? Ask your health care provider if the medicine prescribed to you: ? Requires you to avoid driving or using machinery. ? Can cause constipation. You may need to take these actions to prevent or treat constipation: ? Drink enough fluid to keep your urine pale yellow. ? Take rbrv-zag-djfsztl or prescription medicines. ? Eat foods that are high in fiber, such as beans, whole grains, and fresh fruits and vegetables. ? Limit foods that are high in fat and processed sugars, such as fried or sweet foods. Incision care ??? Follow instructions from your health care provider about how to take care of your incisions. Make sure you: ? Wash your hands with soap and water for at least 20 seconds before and after you change your bandage (dressing). If soap and water are not available, use hand it applications analyst. ? Change your dressing as told by your health care provider. ? Leave stitches (sutures), skin glue, or adhesive strips in place. These skin closures may need to stay in place for 2 weeks or longer. If adhesive strip edges start to loosen and curl up, you may trim the loose edges. Do not remove adhesive strips completely unless your health care provider tells you to do that. ??? Check your incision areas every day for signs of infection. Check for: ? More redness, swelling, or pain. ? Fluid or blood. ? Warmth. ? Pus or a bad smell. Activity [Faiza (more content not included)... Normal [facility] Comment on above: Result Comment: Elec tronically Signed By: Agustin LUGO, Mary Fields\.br\Date and Time Signed: 07/25/24 10:52 EST Inpatient Patient Summaryon 07-25-2024 Inpatient Patient Summary Inpatient Patient Summary [address] [address] [facility] Clinical Discharge Instructions PERSON INFORMATION Name: DELILAH HANSEN PHYSICIANS Admitting Physician: Judith Jacob DO Attending Physician: Judith Jacob DO PCP: LISBET CARMICHAEL DO Diagnosis: Dysmenorrhea; Female pelvic pain Comment: PATIENT EDUCATION INFORMATION Instructions: Total Laparoscopic Hysterectomy, Care After Medication Leaflets: Follow up: With: Address: When: Judith Jacob [address] [place] [address] [address] [address] Business (1) Comments: Appointment has already been scheduled MEDICATION LIST New Medications [facility], [address] [place] [id number], [phone] acetaminophen (acetaminophen 500 mg Tab) 2 Tablets By Mouth every 6 hours as needed as needed for fever. Refills: 1. docusate (Colace 100 mg Cap) 1 Capsules By Mouth every day. Refills: 1. ibuprofen (ibuprofen 600 mg Tab) 1 Tablets By Mouth every 6 hours. Refills: 1. Medications to Continue with No Changes Other Medications albuterol (Albuterol (Eqv-ProAir HFA) 90 mcg/inh inhalation aerosol) 2 Puffs Inhalation every 6 hours as needed Wheezing. levothyroxine (Synthroid 25 mcg(0.025 mg) Tab) 1 Tablets By Mouth every day. spironolactone (spironolactone 25 mg Tab) 1 Tablets By Mouth every day. skin. Comment: Normal [facility] Main OR PACU I Recordon 07-12 Main OR PACU I Record Main OR PACU I Record PACU Phase I Document Type FT Summary Primary Physician: Judith Jacob DO Finalized Date/Time: 07/25/24 10:12:30 Pt. Name: DELILAH HANSEN/Sex: 1980 Female Med Rec #: [id number] Physician: Judith Jacob DO Financial #: [id number] Pt. Type: A Room/Bed: [place] [address] Admit/Disch: 07/25/24 06:01:29 - Institution: Case Times PACU I FT Pre-Care Text: Identifies barriers to communication and implements measures to provide psychological support Develops individualized plan of care, and ensures continuity of care Maintains patient's dignity and privacy, and maintains patient confidentiality Identifies and reports philosophical, cultural, and spiritual beliefs and values Identifies individual values and wishes concerning care Implements aseptic technique, and administers prescribed antibiotic therapy and immunizing agents as ordered Evaluates postoperative tissue perfusion Implements thermoregulation measures, and monitors body temperature Evaluates postoperative respiratory status Evaluates postoperative cardiac status Evaluates postoperative neurological status Assesses pain control, collaborated in initiating patient-controlled analgesia and implements alternative methods of pain control Verifies allergies, administers prescribed medications and solutions, evaluates response to medications Entry 1 In PACU I 07/25/24 09:41:00 Discharge from PACU 07/25/24 10:26:00 I Outcomes Met? Yes Last Modified By: Liana Garza RN 07/25/24 10:12:15 Post-Care Text: The patient demonstrates knowledge of the expected response to the operative or invasive procedure The patient's care is consistent with the individualized perioperative plan of care The patient's right to privacy is maintained The patient's value system, lifestyle, ethnicity, and culture are considered, respected, and incorporated into the perioperative plan of care The patient participates in decisions affecting his or her perioperative plan of care The patient is free from signs and symptoms of infection The patient has wound/tissue perfusion consistent with or improved from baseline levels established preoperatively The patient is at or returning to normothermia at the conclusion of the immediate postoperative period The patient's respiratory function is consistent with or improved from baseline levels established preoperatively The patient's cardiovascular status is consistent with or improved from baseline levels established preoperatively The patient's cardiovascular status is consistent with or improved from baseline levels established preoperatively The patient demonstrates and/or reports adequate pain control throughout the perioperative period The patient received appropriate medication(s), safely administered during the perioperative period Acuity Level PACU I FT Entry 1 Start Time 07/25/24 09:41:00 Stop Time 07/25/24 10:26:00 Acuity Level Acuity Level I Last Modified By: Liana Garza RN 07/25/24 10:12:29 Finalized By: Liana Garza RN Document Signatures Signed By: Liana Garza RN 07/25/24 10:12 [facility] Main OR Preoperative Recordo n 07-25-2024 Main OR Preoperative Record Main OR Preoperative Record PreOp Document Type FT Summary Primary Physician: Judith Jacob DO Finalized Date/Time: 07/25/24 08:03:59 Pt. Name: DELILAH HANSEN/Sex: 1980 Female Med Rec #: [id number] Physician: Judith Jacob DO Financial #: [id number] Pt. Type: A Room/Bed: AS05/01 Admit/Disch: 07/25/24 06:01:29 - Institution: Case Times PreOp FT Pre-Care Text: Verifies consent for planned procedure, identifies individual values and wishes concerning care, includes family members in perioperative teaching Entry 1 Patient Times. In Pre Surgery 07/25/24 06:00:00 Out Pre Surgery 07/25/24 07:26:00 Outcomes Met? Yes Last Modified By: Padma Zimmer Ii 07/25/24 08:03:58 Post-Care Text: The patient participates in decisions affecting his or her perioperative plan of care Finalized By: Padma Zimmer Ii Document Signatures Signed By: Padma Zimmer Ii 07/25/24 08:03 Normal [facility] Operative Reporton 4 Operative Report Operative Report Indication for Surgery Patient is a -0-0-2 who initially presented to the office complaining of worsening moderate to severe dysmenorrhea. Patient reports heavy menstrual bleeding associated with her moderate to severe dysmenorrhea and pelvic pain. Treatment/management option were discussed with patient patient voiced interest in proceeding with definitive surgical management of hysterectomy and declined other treatment options. Robot-assisted total laparoscopic hysterectomy with bilateral salpingectomy procedure were discussed. Risks of but not limited to pain, bleeding, infection, and injury to the surrounding structures (bowel, bladder, ureter, etc.) discussed. Patient voiced understanding and informed consent were signed in the office. Please review office records for more information Preoperative Diagnosis DYSMENORRHEA, PELVIC PAIN, LOWER BACK PAIN, MENORRHAGIA Postoperative Diagnosis DYSMENORRHEA, PELVIC PAIN, LOWER BACK PAIN, MENORRHAGIA Operation HYSTERECTOMY, ROBOT ASSISTED, ROBOTIC ASSISTED TOTAL HYSTERECTOMY WITH BILATERAL SALPINGECTOMY, Bilateral Surgeon(s) Judith Jacob DO (Surgeon - Primary) Wardrobe Technician Yolande Billings Anesthesia General Leo Love MD (Afterschool Babysitter) Arsenio Gutierrez CRNA (Other) Tomasz Huerta (Anesthesiologist Wardrobe Technician) Estimated Blood Loss 10.0 mL Urine Output 50mL of clear yellow urine in the huffman bag at the end of the procedure Findings Uterine cavity sounded to 9cm. Laparoscopic findings revealed normal appearing uterus, bilateral fallopian tubes and bilateral ovaries Specimen(s) Pathology Tissue Exam (Uterus, cervix and bilateral fallopian tubes,AP Specimen) Complications None Technique Patient was seen in the Pre-operative area, all questions were asked and answered. Patient was brought to the operating room with IV fluid running and placed on the operating table without difficulty. General anesthesia was induced and patient was placed in the dorsal lithotomy position with Ortiz type stirrups with the knees bent to 30 degree angles. Patient was prepped and draped in a normal sterile fashion after huffman catheter was inserted and drained to gravity. At this time, timeout was called for the correct patient and the correct procedure. At this time attention was brought to the patient's vagina and a weighted speculum was inserted to the posterior aspect of the vagina and right angle was inserted to the anterior aspect of the vagina to better visualize the cervix. Single-tooth tenaculum was used to grasp the anterior cervical lip. Uterine cavity sounded to 9 cm. Medium, 35mm V-care uterine manipulator was inserted and the cervical cup was secured with suture at the 12 o'clock position on the cervix. The weighted speculum and the right angle were removed from the vagina. At this time attention was brought to the patient's abdomen. 1 mL of 1.3% Exparel/Epinephrine was administered into the skin and subcutaneous tissue of the inferior aspect of the umbilicus. Intra-abdominal access was obtained with a Veress needle with positive hanging drop test. Opening pressure of the intra-abdominal cavity was noted to be 7 mmHg. Pneumoperitoneum was obtained with CO2 gas to a pressure of 15 mmHg. A 8 mm robot laparoscopic port was inserted under direct visualization of the laparoscope. Intra-abdominal placement was confirmed with the laparoscope. No obvious vascular or visceral injury was noted. One additional 8mm robot laparoscopic port was placed approximately 8cm laterally to the left from the initial port and two additional 8mm robot laparoscopic ports are placed laterally to the right of the initial port 8 cm apart under direct visualization of the laparoscope. Laparoscopic finding was noted above. The robot was then docked, the endoscope was inserted and aimed into the pelvis. The Vessel sealer, bipolar grasper, and suction/photocomposition keyboard operator device were inserted under direct visualization of the endoscope. At this time, I broke scrub and sit on the console to control the instruments. The fimbriated end of the left fallopian tube was lifted up, away from the pelvic wall and the mesosalpinx was clamped, desiccated and divided with Vessel sealer device. Following this, sequentially the left utero-ovarian ligament and the round ligament was clamped, desiccated, and divided without difficulty. The anterior broad ligament was dissected at the appropriate plane towards the base of the bladder and adjacent to the cervix. The same procedure was performed on the right side without difficulty. The bladder was appropriately dissected and freed from the lower anterior uterine segment. The tissues were skeletonized and the uterine arteries were clamped, desiccated, and ligated on the left side then on the right side. Pedicles were checked and there were hemostatic. At this time colpotomy was performed with monopolar endoscissors around the cervical cup. The uterus, cervix, and bilateral fallopian tubes were deli (more content not included)... Normal [facility] Comment on above: Result Comment: Elec tronically Signed By: Judith Jacob DO\.br\Date and Time Signed: 07/25/24 11:24 EST Outpatient Surgery Discharge Instructionon 07-25-2024 Outpatient Surgery Discharge Instruction Outpatient Surgery Discharge Instruction [place] [id number] Patient Discharge Instructions PERSON INFORMATION Name: DELILAH HANSEN Date of : 1980 Current Date: 07/25/2024 09:50:47 PHYSICIANS Admitting Physician: Judith Jacob DO Discharge Diagnosis: Dysmenorrhea; Female pelvic pain DELILAH HANSEN has been given the following list of follow-up instructions, prescriptions, and patient education materials: PATIENT FOLLOW-UP INFORMATION Diet: Regular Discharge Activity: Activity as tolerated Call Your Doctor For: Persistent or heavy bleeding, Temperature above 101.5 degrees, Redness, swelling, or pus at operative site, Severe pain at the operative site, Persistent vomiting Wound Care Instructions: Keep incision dry IF UNABLE TO CONTACT YOUR PHYSICIAN AND YOU FEEL IT IS AN EMERGENCY, GO TO THE NEAREST EMERGENCY ROOM OR CALL 911 [address]SEY, have received the attached patient education materials/instructio ns and have verbalized understanding: May we do a follow up call? Yes No I was present when discharge instructions were given Patient Signature Date Clinican/Nurse Signature Date Follow up: With: Address: When: Judith Jacob [address], [facility] [address] [place] [address] Business (1) Comments: Appointment has already been scheduled Pharmacy Information: You may receive a survey from [facility] asking you to rate your care experience. Your feedback is important and will help us understand what we do well and how we can improve the quality of care we provide to you, your loved ones and our community. It???s an honor to serve you. Thank you for choosing [facility] HERE ARE THE MEDICATION CHANGES THAT OCCURRED DURING YOUR HOSPITAL STAY New Medications [facility], [address] [place], [place] [id number], [phone] acetaminophen (acetaminophen 500 mg Tab) 2 Tablets By Mouth every 6 hours as needed as needed for fever. Refills: 1. docusate (Colace 100 mg Cap) 1 Capsules By Mouth every day. Refills: 1. ibuprofen (ibuprofen 600 mg Tab) 1 Tablets By Mouth every 6 hours. Refills: 1. Medications to Continue with No Changes Other Medications albuterol (Albuterol (Eqv-ProAir HFA) 90 mcg/inh inhalation aerosol) 2 Puffs Inhalation every 6 hours as needed Wheezing. levothyroxine (Synthroid 25 mcg(0.025 mg) Tab) 1 Tablets By Mouth every day. spironolactone (spironolactone 25 mg Tab) 1 Tablets By Mouth every day. skin. PATIENT EDUCATION INFORMATION Instructions: Total Laparoscopic Hysterectomy, Care After The following information offers guidance on how to care for yourself after your procedure. Your health care provider may also give you more specific instructions. If you have problems or questions, contact your health care provider. What can I expect after the procedure? After the procedure, it is common to have: ??? Pain, bruising, and numbness around your incisions. ??? Tiredness (fatigue). ??? Poor appetite. ??? Less interest in sex. ??? Vaginal discharge or bleeding. You will need to use a sanitary pad after this procedure. ??? Feelings of sadness or other emotions. If your ovaries were also removed, it is also common to have symptoms of menopause, such as hot flashes, night sweats, and lack of sleep (insomnia). Follow these instructions at home: Medicines ??? Take kndw-iiw-ksxmxpd and prescription medicines only as told by your health care provider. ??? Ask your health care provider if the medicine prescribed to you: ? Requires you to avoid driving or using machinery. ? Can cause constipation. You may need to take these actions to prevent or treat constipation: ? Drink enough fluid to keep your urine pale yellow. ? Take vclm-but-yxtsiza or prescription medicines. ? Eat foods that are high in fiber, such as beans, whole grains, and fresh fruits and vegetables. ? Limit foods that are high in fat and processed sugars, such as fried or sweet foods. Incision care ??? Follow instructions from your health care provider about how to take care of your incisions. Make sure you: ? Wash your hands with soap and water for at least 20 seconds before and after you change your bandage (dressing). If soap and water are not available, use hand it applications analyst. ? Change your dressing as told by your health care provider. ? Leave stitches (sutures), skin glue, or adhesive strips in place. These skin closures may need to stay in place for 2 weeks or longer. If adhesive st (more content not included)... Normal [facility] SEROLOGYOrdered By: Bailee rivera on 07-25-2024 HCG.beta subunit (U) [Moles/Vol] Negative Normal [facility] BetaHcg Qualon 07-25-2024 HCG.beta subunit (U) [Moles/Vol] Negative Normal [facility] Comment on above: Performed By: #### 2 [id number] #### [facility] [address] [place] [address] URINALYSISOrdered By: SYSTEM SYSTEM on 07-25-2024 Bilirubin Ql (U) Negative Normal Negativemg/dL [facility] UA Auto SS Clarity (U) Clear (07/25/24 7:47 AM) Normal Clear [facility] UA Auto SS Color (U) Light-Yellow 1 (07/25/24 7:47 AM) Normal Yellow [facility] UA Auto SS Comment on above: Interpretive Data: M icroscopic readings are only performed on those samples that meet specific criteria set forth by [facility]. Glucose Ql (U) Negative Normal Negativemg/dL [facility] Auto SS Hemoglobin Auto test strip (U) [Mass/Vol] Trace mg/dL Invalid Interpretation Code Negativemg/dL [facility] UA Auto SS Ketones Auto test strip Ql (U) Negative Normal Negativemg/dL [facility] UA Auto SS Leukocyte esterase Auto test strip Ql (U) Negative Normal NegativeLeu/u L [facility] UA Auto SS Nitrite Auto test strip Ql (U) Negative Normal Negativemg/dL [facility] UA Auto SS pH (U) 6.0 *NA* (07/25/24 7:47 AM) Invalid Interpretation Code 5.0 - 9.0 [facility] Auto SS Protein Ql (U) Negative Normal Negativemg/dL [facility] UA Auto SS Specific gravity (U) [Rel density] 1.024 *NA* (07/25/24 7:47 AM) Invalid Interpretation Code 1.005 - 1.030 [facility] UA Auto SS Urobilinogen (U) [Mass/Vol] Negative Normal Negativemg/dL [facility] Auto SS URINALYSISOrdered By: Padma Zimmer on 07-25-2024 UA Spec Desc Huffman (07/25/24 7:47 AM) Normal [facility] UA Auto SS URINALYSIS WITH MICROon 07-12 BILIRUBIN:PRTHR:PT:UR INE:ORD:TEST STRIP.AUTOMATED Negative Negative mg/dL [facility] CLARITY:TYPE:PT:URINE :NOM: Clear Clear [facility] CLASS:TYPE:PT:URINE COLLECTION METHOD:NOM:* Huffman [facility] COLOR:TYPE:PT:URINE:N OM:AUTO Light-Yellow Yellow [facility] Comment on above: Microscopic readings are only performed on those samples that meet specific criteria set forth by [facility]. [facility] PH:LSCNC:PT:URINE:QN: TEST STRIP 6.0 5.0 - 9.0 [facility] SPECIFIC GRAVITY:RDEN:PT:URINE :QN:TEST STRIP 1.024 1.005 - 1.030 [facility] GLUCOSE:PRTHR:PT:URIN E:ORD:TEST STRIP Negative Negative mg/dL [facility] HEMOGLOBIN:MCNC:PT:UR INE:SEMIQN:TEST STRIP.AUTOMATED Trace Abnormal Negative mg/dL [facility] Interpretation and review of laboratory results Abnormal [facility] KETONES:PRTHR:PT:URIN E:ORD:TEST STRIP.AUTOMATED Negative Negative mg/dL [facility] LEUKOCYTE ESTERASE:PRTHR:PT:URI NE:ORD:TEST STRIP.AUTOMATED Negative Negative CD:[id number] [facility] NITRITE:PRTHR:PT:URIN E:ORD:TEST STRIP.AUTOMATED Negative Negative mg/dL [facility] PROTEIN:PRTHR:PT:URIN E:ORD:TEST STRIP Negative Negative mg/dL [facility] UROBILINOGEN:MCNC:PT: URINE:SEMIQN:TEST STRIP Negative Negative mg/dL [facility] Original Ordering Provider: DO Judith Jacob [facility] Urinalysis with Microon 07-12 Bilirubin Ql (U) Negative Normal Negative [facility] Comment on above: Performed By: #### 4 [id number] #### [facility] [address] [place] [address] Clarity (U) Clear Normal Clear [facility] Comment on above: Performed By: #### 4 [id number] #### [facility] [address] [place] [address] Color (U) Light-Yellow Normal Yellow [facility] Comment on above: Result Comment: Micr oscopic readings are only performed on those samples that meet specific criteria set forth by [facility]. Performed By: #### 4 [id number] #### [facility] [address] [place] [address] Glucose Ql (U) Negative Normal Negative [facility]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 Clinical Notes 07-01-2024 to 08-29-2024 Judith Dotty Jacob, DO - 08/29/2024 10:15 AM EST Note Date & Type Note Facility 08-29-2024 History of Present illness Narrative Images from the original note were not included. Rayo Hansen is a 43 y.o. female HPI Chief Complaint Patient presents with Post-op Visit Patient is here for 5 week post op. She had RA TLH/BS on 07/25/24 at [facility] due to heavy and painful periods. Patient reports that its sometimes difficult to start voiding and some tenderness on her right side. Denies other problems. Past Medical History: Diagnosis Date Adenomyosis Asthma (CMS/HCC) Chronic fatigue 04/06/2023 Hypothyroid (CMS/HCC) Raynaud phenomenon Past Surgical History: Procedure Laterality Date LASIK RETINAL DETACHMENT SURGERY ROBOTIC ASSISTED HYSTERECTOMY 07/25/2024 TLH/BS VAGINAL DELIVERY x2 Family History Problem Relation Name Age of Onset Skin cancer Mother Kidney cancer Father Hypertension Father Diabetes Father No Known Problems Daughter No Known Problems Son Breast cancer Maternal Grandmother Cervical cancer Maternal Grandmother Breast cancer Other Social History Tobacco Use Smoking status: Never Smokeless tobacco: Never Vaping Use Vaping status: Never Used Substance Use Topics Alcohol use: Yes Alcohol/week: 1.0 standard drink of alcohol Types: 1 Standard drinks or equivalent per week Comment: caffeine intake : soda weekly Drug use: Never OB History Para Term AB Living 2 2 2 SAB IAB Ectopic Multiple Live Births 2 # Outcome Date GA Lbr Manuel/2nd Weight Sex Type Anes PTL Lv 2 Para 1 Para Allergies Allergen Reactions Codeine Unknown Tetracycline Unknown Current Outpatient Medications on File Prior to Visit Medication Sig Dispense Refill Cholecalciferol (Vitamin D) 10 MCG/ML liquid Take by mouth dexAMETHasone (Decadron) 6 MG tablet Take 1 tablet (6 mg) by mouth Daily for 7 days 7 tablet 0 fluocinolone (Synalar) 0.01 % external solution APPLY TO AFFECTED AREAS OF IRRITATION DAILY IF NEEDED FOR FLARES levothyroxine (Synthroid, Levoxyl) 25 MCG tablet Take 1 tablet (25 mcg) by mouth in the morning. Take before meals. 90 tablet 3 Multiple Vitamin (MULTIVITAMIN PO) Take by mouth spironolactone (Aldactone) 25 MG tablet Take 25 mg by mouth in the morning and 25 mg before bedtime. tretinoin (Retin-A) 0.01 % gel Apply topically at bedtime. No current facility-administered medications on file prior to visit. Review of Systems Constitutional: Negative for chills and fever. Respiratory: Negative for shortness of breath. Cardiovascular: Negative for chest pain. Gastrointestinal: Negative for nausea and vomiting. Genitourinary: Negative for dysuria, pelvic pain and vaginal discharge. Neurological: Negative for dizziness and headaches. Objective BP 118/74 Wt 161 lb LMP 06/19/2024 BMI 25.22 kg/m Physical Exam Constitutional: Appearance: Normal appearance. Genitourinary: No lesions in the vagina. Right Labia: No lesions. Left Labia: No lesions. Perineal sutures intact. No vaginal discharge or erythema. Right Adnexa: not tender and no mass present. Left Adnexa: not tender and no mass present. Cervix is absent. Uterus is absent. Cardiovascular: Rate and Rhythm: Normal rate and regular rhythm. Pulmonary: Breath sounds: Normal breath sounds. Abdominal: General: Bowel sounds are normal. Palpations: Abdomen is soft. Tenderness: There is no abdominal tenderness. Neurological: Mental Status: She is alert. Skin: General: Skin is warm and dry. Comments: Laparoscopic skin incisions well healed Psychiatric: Mood and Affect: Mood normal. Assessment/Plan 1. Follow-up examination after gynecological surgery (Primary) Doing well. Reviewed and discussed benign pathology results and intraoperative images 2. History of robot-assisted laparoscopic hysterectomy 3. Status post bilateral salpingectomy 4. Vulvar irritation Nystatin-Triamcinolone cream Refill Rx sent. To be used as needed - nystatin-triamcinolone (Mycolog II) cream; Apply topically 2 (two) times a day To affected area as needed Dispense: 15 g; Refill: 0 documented in this encounter [facility] 07-25-2024 Note Progress Note-Cynthia jarrell Patient: DELILAH HANSEN Age: 43 years Sex: Female : 1980 Associated Diagnoses: None Author: Ivan NESS, Leo Fu Postoperative Information Postoperative disposition: Postoperative disposition: To PACU. Optimetrix number: Optimetrix number [id number]. Anesthetic utilized: General. Health Status Allergies: Allergic Reactions (Selected) Severity Not Documented Codeine- Vomiting. Tetracyclines- Rash. Physical Examination Vital Signs 07/25/2024 13:12 EST Heart Rate Monitored 59 bpm LOW SpO2 100 % 07/25/2024 13:12 EST Systolic Blood Pressure 115 mmHg Diastolic Blood Pressure 69 mmHg Blood Pressure Location Right arm Mean Arterial Pressure, Monitered 84 mmHg 07/25/2024 13:12 EST Temperature Temporal Artery 36.3 DegC Pain Assessment: Controlled. General: Awake, Appropriate. Respiratory: Adequate air exchange. Cardiovascular: Stable. Neurological Assessment Anesthetic outcome No anesthetic complications noted. Adequate pain relief. Review / Management Condition: Stable. Plan Transfer/Discharge: Transfer/Discharge Discharge when meets criteria ( To home ). [facility] Comment on above: Result Comment: Elec tronically Signed By: Leo Love MD\.br\Date and Time Signed: 07/25/24 16:29 EST 07-25-2024 Evaluation + Plan note Extrac duane from: Title:ANES Post-operative Note---General Author: Leo Love MD Date:07/25/24 Plan Transfer/Discharge: Transfer/Discharge Discharge when meets criteria ( To home ). Extracted from: Title:ANES Pre-operative Note 2022 Author:Leo Noel Date:07/25/24 Plan [place] [employer]esthesi[employer] (ASA) physical status classification: Class II. Anesthetic Preoperative Plan: Anesthesia General. [facility] 11-14-2024 Hospital Discharge instructions Patient Education 07/25/2024 10:50:37 Post Op Patient Instructions - FT (CUSTOM) 07/25/2024 09:50:15 Total Laparoscopic Hysterectomy, Care After Total Laparoscopic Hysterectomy, Care After The following information offers guidance on how to care for yourself after your procedure. Your health care provider may also give you more specific instructions. If you have problems or questions, contact your health care provider. What can I expect after the procedure? After the procedure, it is common to have: Pain, bruising, and numbness around your incisions. Tiredness (fatigue). Poor appetite. Less interest in sex. Vaginal discharge or bleeding. You will need to use a sanitary pad after this procedure. Feelings of sadness or other emotions. If your ovaries were also removed, it is also common to have symptoms of menopause, such as hot flashes, night sweats, and lack of sleep (insomnia). Follow these instructions at home: Medicines Take lkvt-pjh-chdpvwo and prescription medicines only as told by your health care provider. Ask your health care provider if the medicine prescribed to you: ?Requires you to avoid driving or using machinery. ?Can cause constipation. You may need to take these actions to prevent or treat constipation: ?Drink enough fluid to keep your urine pale yellow. ?Take pmxz-gti-elsixbx or prescription medicines. ?Eat foods that are high in fiber, such as beans, whole grains, and fresh fruits and vegetables. ?Limit foods that are high in fat and processed sugars, such as fried or sweet foods. Incision care Follow instructions from your health care provider about how to take care of your incisions. Make sure you: ?Wash your hands with soap and water for at least 20 seconds before and after you change your bandage (dressing). If soap and water are not available, use hand it applications analyst. ?Change your dressing as told by your health care provider. ?Leave stitches (sutures), skin glue, or adhesive strips in place. These skin closures may need to stay in place for 2 weeks or longer. If adhesive strip edges start to loosen and curl up, you may trim the loose edges. Do not remove adhesive strips completely unless your health care provider tells you to do that. Check your incision areas every day for signs of infection. Check for: ?More redness, swelling, or pain. ?Fluid or blood. ?Warmth. ?Pus or a bad smell. Activity Rest as told by your health care provider. Avoid sitting for a long time without moving. Get up to take short walks every 1 2 hours. This is important to improve blood flow and breathing. Ask for help if you feel weak or unsteady. Return to your normal activities as told by your health care provider. Ask your health care provider what activities are safe for you. Do not lift anything that is heavier than 10 lb (4.5 kg), or the limit that you are told, for one month after surgery or until your health care provider says that it is safe. If you were given a sedative during the procedure, it can affect you for several hours. Do not drive or operate machinery until your health care provider says that it is safe. Lifestyle Do not use any products that contain nicotine or tobacco. These products include cigarettes, chewing tobacco, and vaping devices, such as e-cigarettes. These can delay healing after surgery. If you need help quitting, ask your health care provider. Do not drink alcohol until your health care provider approves. General instructions Do not douche, use tampons, or have sex for at least 6 weeks, or as told by your health care provider. If you struggle with physical or emotional changes after your procedure, speak with your health care provider or a therapist. Do not take baths, swim, or use a hot tub until your health care provider approves. You may only beallowed to take showers for 2 3 weeks. Keep your dressing dry until your health care provider says it can be removed. Try to have someone at home with you for the first 1 2 weeks to help with your daily chores. Wear compression stockings as told by your health care provider. These stockings help to prevent blood clots and reduce swelling in your legs. Keep all follow-up visits. This is important. Contact a health care provider if: You have any of these signs of infection: ?Chills or a fever. ?More redness, swelling, or pain around an incision. ?Fluid or blood coming from an incision. ?Warmth coming from an incision. ?Pus or a bad smell coming from an incision. An incision opens. You feel dizzy or light-headed. You have pain or bleeding when you urinate, or you are unable to urinate. You have abnormal vaginal discharge. You have pain that does not get better with medicine. Get help right away if: You have a fever and your symptoms suddenly get worse. You have severe abdominal pain. You have chest pain or shortness of breath. You faint. You have pain, swelling, or redness in your leg. You have heavy vaginal bleeding with blood clots, soaking through a sanitary pad in less than 1 hour. These symptoms may represent a serious problem that is an emergency. Do not wait to see if the symptoms will go away. Get medical help right away. Call your local emergency services (911 in the [place] Do not drive yourself to the hospital. Summary After the procedure, it is common to have pain and bruising around your incisions. Do not take baths, swim, or use a hot tub until your health care provider approves. Do not lift anything that is heavier than 10 lb (4.5 kg), or the limit that you are told, for one month after surgery or until your health care provider says that it is safe. Tell your health care provider if you have any signs or symptoms of infection after the procedure. Get help right away if you have severe abdominal pain, chest pain, shortness of breath, or heavy bleeding from your vagina. This information is not intended to replace advice given to you by your health care provider. Make sure you discuss any questions you have with your health care provider. Document Revised: 04/29/2021 Document Reviewed: 04/30/2021 [employer] Patient Education 2023 [employer]. Follow Up Care 03/26/2024 16:08:03 With:Judith Jacob Address: [address] [place] [address] [facility] (1) When: Unknown Comments:Appointment has already been scheduled [facility] 11-14-2024 NotePatient Education - Text Surgery Total Laparoscopic Hysterectomy, Care After The following information offers guidance on how to care for yourself after your procedure. Your health care provider may also give you more specific instructions. If you have problems or questions, contact your health care provider. What can I expect after the procedure? After the procedure, it is common to have: ??? Pain, bruising, and numbness around your incisions. ??? Tiredness (fatigue). ??? Poor appetite. ??? Less interest in sex. ??? Vaginal discharge or bleeding. You will need to use a sanitary pad after this procedure. ??? Feelings of sadness or other emotions. If your ovaries were also removed, it is also common to have symptoms of menopause, such as hot flashes, night sweats, and lack of sleep (insomnia). Follow these instructions at home: Medicines ??? Take kdzy-gze-pafzobe and prescription medicines only as told by your health care provider. ??? Ask your health care provider if the medicine prescribed to you: ? Requires you to avoid driving or using machinery. ? Can cause constipation. You may need to take these actions to prevent or treat constipation: ? Drink enough fluid to keep your urine pale yellow. ? Take tmai-rvm-hbjsqug or prescription medicines. ? Eat foods that are high in fiber, such as beans, whole grains, and fresh fruits and vegetables. ? Limit foods that are high in fat and processed sugars, such as fried or sweet foods. Incision care ??? Follow instructions from your health care provider about how to take care of your incisions. Make sure you: ? Wash your hands with soap and water for at least 20 seconds before and after you change your bandage (dressing). If soap and water are not available, use hand it applications analyst. ? Change your dressing as told by your health care provider. ? Leave stitches (sutures), skin glue, or adhesive strips in place. These skin closures may need tostay in place for 2 weeks or longer. If adhesive strip edges start to loosen and curl up, you may trim the loose edges. Do not remove adhesive strips completely unless your health care provider tellsyou to do that. ??? Check your incision areas every day for signs of infection. Check for: ? More redness, swelling, or pain. ? Fluid or blood. ? Warmth. ? Pus or a bad smell. Activity ??? Rest as told by your health care provider. ??? Avoid sitting for a long time without moving. Get up to take short walks every 1?2 hours. This is important to improve blood flow and breathing. Ask for help if you feel weak or unsteady. ??? Return to your normal activities as told by your health care provider. Ask your health care provider what activities are safe for you. ??? Do not lift anything that is heavier than 10 lb (4.5 kg), or the limit that you are told, for one month after surgery or until your health care provider says that it is safe. ??? If you were given a sedative during the procedure, it can affect you for several hours. Do not drive or operate machinery until your health care provider says that it is safe. Lifestyle ??? Do not use any products that contain nicotine or tobacco. These products include cigarettes, chewing tobacco, and vaping devices, such as e-cigarettes. These can delay healing after surgery. If you need help quitting, ask your health care provider. ??? Do not drink alcohol until your health care provider approves. General instructions ??? Do not douche, use tampons, or have sex for at least 6 weeks, or as told by your health care provider. ??? If you struggle with physical or emotional changes after your procedure, speak with your healthcare provider or a therapist. ??? Do not take baths, swim, or use a hot tub until your health care provider approves. You may only be allowed to take showers for 2?3 weeks. ??? Keep your dressing dry until your health care provider says it can be removed. ??? Try to have someone at home with you for the first 1?2 weeks to help with your daily chores. ??? Wear compression stockings as told by your health care provider. These stockings help to prevent blood clots and reduce swelling in your legs. ??? Keep all follow-up visits. This is important. Contact a health care provider if: ??? You have any of these signs of infection: ? Chills or a fever. ? More redness, swelling, or pain around an incision. ? Fluid or blood coming from an incision. ? Warmth coming from an incision. ? Pus or a bad smell coming from an incision. ??? An incision opens. ??? You feel dizzy or light-headed. ??? You have pain or bleeding when you urinate, or you are unable to urinate. ??? You have abnormal vaginal discharge. ??? You have pain that does not get better with medicine. Get help right away if: ??? You (more content not included)...[facility]11-14-2024 Note Progress Note-Physician Patient: DELILAH HANSEN Age: 43 years Sex: Female : 1980 Associated Diagnoses: None Author: Leo Love MD Preoperative Information Anesthesia Preop Info: Time patient last ate or drank 07/25/2024 00:00:00. Anesthesia history: Patient history: N/V with anesthesia. Family history+: None. Informed consent: Signed by patient. Re-evaluation prior to induction: Initial evaluation reviewed: No significant change. Review of Systems Eye Ear/Nose/Mouth/Throat Respiratory: No shortness of breath, No cough. Cardiovascular: Palpitations, occasional fleeting palpitations without presyncope or syncope, No chest pain. Gastrointestinal: Heartburn. Musculoskeletal Neurologic Health Status Allergies: Allergic Reactions (Selected) Severity Not Documented Codeine- Vomiting. Tetracyclines- Rash., Allergies (2) Active Severity Reaction codeine Vomiting tetracyclines Rash Current medications: (Selected) Inpatient Medications Ordered HYDROmorphone 1 mg/mL injectable solution: 0.4 mg = 0.4 mL, Injection, IV Push, q4min PRN Pain for 5 dose(s), Stop date Limited # of times, Routine, Start date 07/25/24 8:22:00 EST, 07/25/24 8:22:00 EST Lactated Ringers IV Ratna 1000 mL 1,000 mL: 1,000 mL, IV, 100 mL/hr, Routine, Start date 07/25/24 8:22:00 EST, 10 hour(s), Total volume (mL): 1,000, 74 kg, 1.88, m2 Sodium Chloride 0.9% IV Ratna 1000 mL 1,000 mL: 1,000 mL, IV, 150 mL/hr, Routine, Start date 246:00:00 EST, 6.7 hour(s), Total volume (mL): 1,000, 74 kg, 1.88, m2 cefazolin additive + Sodium Chloride 0.9% intravenous solution 50 mL: 2 gram = 1 EA, Powder-Inj, IVPiggyback, PREOP, Routine, Start date 07/25/24 6:00:00 EST, 100 mL/hr, Infuse over 30 minute(s) promethazine additive 12.5 mg + Sodium Chloride 0.9% IV Ratna 50 mL (INT) 50 mL: IV Piggyback, Once PRN Nausea/Vomiting, Routine, Start date 07/25/24 8:22:00 EST, 151.5 mL/hr, Infuse over 20 minute(s),07/25/24 8:22:00 EST Documented Medications Documented Albuterol (Eqv-ProAir HFA) 90 mcg/inh inhalation aerosol: 2 puff(s), Inhalation, q6hr Wheezing, Refill(s) 0 Synthroid 25 mcg(0.025 mg) Tab: 25 mcg = 1 tab(s), Oral, Daily, Refills(s) 0, Thyroid spironolactone 25 mg Tab: 25 mg = 1 tab(s), Oral, Daily, skin, Refills(s) 0, Other (see comment), Home Medications (3) Active Albuterol (Eqv-ProAir HFA) 90 mcg/inh inhalation aerosol 2 puff(s), PRN, Inhalation, q6hr spironolactone 25 mg Tab 25 mg = 1 tab(s), Oral, Daily Synthroid 25 mcg(0.025 mg) Tab 25 mcg = 1 tab(s), Oral, Daily , Medications (5) Active Scheduled: (1) ceFAZolin + Sodium Chloride 0.9% Minibag 50 mL 2 gram 1 EA, IV Piggyback, PREOP Continuous: (2) Lactated Ringers 1,000 mL 1,000 mL, IV, 100 mL/hr Sodium Chloride 0.9% 1,000 mL 1,000 mL, IV, 150 mL/hr PRN: (2) HYDROmorphone 1 mg/mL SOLN [F] 0.4 mg 0.4 mL, IV Push, q4min promethazine 12.5 mg + Sodium Chloride 0.9% 50 mL 12.5 mg 0.5 mL, IV Piggyback, Once Problem list: All Problems Asthma / SNOMED CT 003122288 / Confirmed Hx of Lyme disease / SNOMED CT 1225185768 / Confirmed Hypothyroidism / SNOMED CT 43956142 / Confirmed Raynaud disease / SNOMED CT 460681873 / Confirmed, Active Problems (4) Asthma Hx of Lyme disease Hypothyroidism Raynaud disease Histories Past Medical History: No active or resolved past medical history items have been selected or recorded. Family History: No family history items have been selected or recorded. Procedure history: Detached retina with buckle procedure ([id number]). Social History Social & Psychosocial Habits Alcohol 07/01/2024 Risk Assessment: Denies Alcohol Use Substance Abuse 07/01/2024 Risk Assessment: Denies Substance Abuse Tobacco 07/01/2024 Risk Assessment: Denies Tobacco Use . Physical Examination Vital Signs 07/25/2024 6:22 EST Heart Rate Monitored 58 bpm LOW Systolic Blood Pressure 110 mmHg Diastolic Blood Pressure 70 mmHg Blood Pressure Location Left arm Mean Arterial Pressure, Monitered 83 mmHg 07/25/2024 6:21 EST Heart Rate Monitored 58 bpm LOW SpO2 100 % 07/25/2024 6:21 EST Respiratory Rate 16 br/min 07/25/2024 6:21 EST Temperature Axillary 36.3 DegC 07/25/2024 6:20 EST Systolic Blood Pressure 118 mmHg Diastolic Blood Pressure 76 mmHg Blood Pressure Location Right arm Mean Arterial Pressure, Monitered 90 mmHg 07/25/2024 6:20 EST Apical Heart Rate 61 bpm Vital Signs (last 24 hrs) Last Charted Temp Axillary 36.3 DegC (JUL 25 06:) Heart Rate Monitored L 58 bpm (JUL 25:) SBP 110 mmHg (JUL 25) DBP 70 mmHg (JUL 25) Measurements from flowsheet : Measurements 07/25/2024 6:31 EST Height/Length Measured 172 cm Weight Measured 74 kg Airway: Mallampati classification: II (soft palate, fauces, uvula visible). Respiratory: Lungs are clear to auscultation, Respirations are non-labored, adequate air exchange. Cardiov (more content not included)...[facility]:Result Comment: Electronically Signed By: Ivan NESS, Leo Fu\.br\Date and Time Signed: 07/25/24 08:27 [id number] History of Present illness Narrative* Judith Jcaob, - 07/01/2024 11:30 AM EDT Images from the original note were not included. Subjective Delilah Hansen is a 43 y.o. female HPI Chief Complaint Patient presents with Pre-op Visit Patient here for pre-op visit. Patient initially reports of worsening moderate to severe dysmenorrhea. Patient then reports worsening heavy menstrual bleeding associated with her moderate to severe dysmenorrhea. Pelvic ultrasound performed without significant findings. Treatment/management options discussed. Patient voiced interest in proceeding with definitive surgical management with hysterectomy Pelvic ultrasound revealed anteverted uterus measuring [id number] with normal contour and has homogeneous myometrial echotexture. Endometrium normal in contour and thickness of 4.8mm with no overt submucosal fibroids or polyps. Right ovary measuring [id number] with no cysts identified. Left ovary measuring [id number] with no cysts identified. No free fluid in the pelvis and good blood profusion noted to both ovaries. NILM pap-smear and HR HPV negative (09/07/2022) Endometrial biopsy with benign endometrial pathology (03/12/2024) Past Medical History: Diagnosis Date Adenomyosis Asthma (CMS/HCC) Chronic fatigue 04/06/2023 Hypothyroid (CMS/HCC) Raynaud phenomenon Past Surgical History: Procedure Laterality Date LASIK RETINAL DETACHMENT SURGERY VAGINAL DELIVERY x2 Family History Problem Relation Name Age of Onset Skin cancer Mother Kidney cancer Father Hypertension Father Diabetes Father No Known Problems Daughter No Known Problems Son Breast cancer Maternal Grandmother Cervical cancer Maternal Grandmother Breast cancer Other Social History Tobacco Use Smoking status: Never Smokeless tobacco: Never Vaping Use Vaping status: Never Used Substance Use Topics Alcohol use: Yes Alcohol/week: 1.0 standard drink of alcohol Types: 1 Standard drinks or equivalent per week Comment: caffeine intake : soda weekly Drug use: Never OB History Para Term AB Living 2 2 2 SAB IAB Ectopic Multiple Live Births 2 # Outcome Date GA Lbr Manuel/2nd Weight Sex Type Anes PTL Lv 2 Para 1 Para Allergies Allergen Reactions Codeine Unknown Tetracycline Unknown Current Outpatient Medications on File Prior to Visit Medication Sig Dispense Refill Cholecalciferol (Vitamin D) 10 MCG/ML liquid Take by mouth dexAMETHasone (Decadron) 6 MG tablet Take 1 tablet (6 mg) by mouth Daily for 7 days 7 tablet 0 fluocinolone (Synalar) 0.01 % external solution APPLY TO AFFECTED AREAS OF IRRITATION DAILY IF NEEDED FOR FLARES levothyroxine (Synthroid, Levoxyl) 25 MCG tablet Take 1 tablet (25 mcg) by mouth in the morning. Take before meals. 90 tablet 3 Multiple Vitamin (MULTIVITAMIN PO) Take by mouth spironolactone (Aldactone) 25 MG tablet Take 25 mg by mouth in the morning and 25 mg before bedtime. tretinoin (Retin-A) 0.01 % gel Apply topically at bedtime. No current facility-administered medications on file prior to visit. Review of Systems Constitutional: Negative for chills and fever. Respiratory: Negative for shortness of breath. Cardiovascular: Negative for chest pain. Gastrointestinal: Negative for nausea and vomiting. Genitourinary: Negative for dysuria, pelvic pain and vaginal discharge. Neurological: Negative for dizziness and headaches. Objective BP 124/76 Wt 165 lb LMP 06/19/2024 BMI 25.84 kg/m Physical Exam Constitutional: Appearance: Normal appearance. She is well-developed. HENT: Head: Normocephalic and atraumatic. Cardiovascular: Rate and Rhythm: Normal rate and regular rhythm. Pulmonary: Effort: Pulmonary effort is normal. Breath sounds: Normal breath sounds. Musculoskeletal: Right lower leg: No edema. Left lower leg: No edema. Neurological: General: No focal deficit present. Mental Status: She is alert and oriented to person, place, and time. Skin: General: Skin is warm and dry. Psychiatric: Mood and Affect: Mood and affect normal. Assessment/Plan 1. Preoperative exam for gynecologic surgery (Primary) Robot Assisted Total Laparoscopic Hysterectomy with bilateral Salpingectomy procedure discussed. Risks of but not limited to pain, bleeding, infections, and injury to surrounding structures (bladder,bowel, ureter, vagina, etc.) discussed. Patient voiced understanding and informed consent signed 2. Menorrhagia with regular cycle 3. Abnormal uterine bleeding (AUB) 4. Dysmenorrhea 5. Pelvic pain in [facility] Future Appointments Appointment Date:07/25/2024 07:30:00 AM Scheduled Provider: Location:[facility] Appointment Type:Surgery FT [facility] Evaluation note* Diagnosis Preoperative exam for gynecologic surgery- Primary Menorrhagia with regular cycle Abnormal uterine bleeding (AUB) Dysmenorrhea Pelvic pain in female Unspecified symptom associated with female genital organs documented in this encounter [facility] HealthcareEvaluation note* Diagnosis Follow-up examination after gynecological surgery- Primary History of robot-assisted laparoscopic hysterectomy Status post bilateral salpingectomy Vulvar irritation documented in [facility] Narrative No data available for this section [facility] Hospital Discharge instructions No data available for this section [facility] Progress note No data available for this section [facility] Summary Purpose Family History No Family History Records FoundNo Family History Records Found No data available for this section No Family History Records FoundNo Family History Records FoundNo Family History Records FoundNo Family History Records Found No data available for this section No Family History Records FoundNo Family History Records FoundNo Family History Records FoundNo Family History Records FoundNo Family History Records FoundNo Family History Records FoundNo Family History Records Found No data available for this section No Family History Records FoundNo Family History Records Found Advance Directives No Advanced Directives Records FoundNo Advanced Directives Records FoundNo Advanced Directives Records FoundNo Advanced Directives Records FoundNo Advanced Directives Records FoundNo Advanced Directives Records FoundNo Advanced Directives Records FoundNo Advanced Directives Records FoundNo Advanced Directives Records FoundNo Advanced Directives Records FoundNo Advanced Directives Records FoundNo Advanced Directives Records FoundNo Advanced Directives Records FoundNo Advanced Directives Records FoundNo Advanced Directives Records Found Additional Source Comments INFORMATION SOURCE (unrecogn ized section and content) DATE CREATED AUTHOR 11/01/2021 [facility] dical Specialist DATE CREATED AUTHOR AUTHOR'S ORGANIZ ATION 11/06/2022 [facility] DATE CREATED AUTHOR AUTHOR'S ORGANIZ ATION 07/03/2024 [facility] DATE CREATED AUTHOR AUTHOR'S ORGANIZ ATION 07/27/2024 [facility] DATE CREATED AUTHOR AUTHOR'S ORGANIZ ATION 12/15/2024 [facility] DATE CREATED AUTHOR AUTHOR'S ORGANIZ ATION 03/20/2025 [facility] dical Specialists EPIC Reason for Visit (unrecogniz ed section and content) Reason Comments Pre-op Visit Patient here for pre -op visit. Patient initially reports of worsening moderate to severe dysmenorrhea. Patient then reports worsening heavy menstrual bleeding associated with her moderate to severe dysmenorrhea. Pelvic ultrasound performed without significant findings. Treatment/management options discussed. Patient voiced interest in proceeding with definitive surgical management with hysterectomy Reason Comments Post-op Visit Patient is here for 5 week post op. She had RA TLH/BS on 07/25/24 at [facility] due to heavy and painful periods. Patient reports that its sometimes difficult to start voiding and some tenderness on her right side. Denies other problems. 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 This clinical summary was aggregated from multiple sources. Caution should be exercised in using it in the provision of clinical care. This summary normalizes information from multiple sources, and as a consequence, information in this document may materially change the coding, format and clinical context of patient data. In addition, data may be omitted in some cases. CLINICAL DECISIONS SHOULD BE BASED ON THE PRIMARY CLINICAL RECORDS. [employer] [facility]. provides no warranty or guarantee of the accuracy or completeness of information in this document.
[2025-05-16 10:00] LABS: Hematocrit 42.7 % (36.0-48.0); Hemoglobin 14.3 g/dL (12.0-16.0); Immature Granulocytes Abs Auto 0.02 10^3/uL (0.00-0.03); Immature Granulocytes Pct Auto 0.5 % (0.0-0.5); Lymphocytes Absolute Auto 1.0 10^3/uL (1.2-3.8); Mean Corpuscular HGB Conc 33.5 g/dL (29.9-35.2); Mean Corpuscular Hemoglobin 31.7 pg (26.7-34.0); Mean Corpuscular Volume 94.7 fL (81.0-99.0); Platelet Count 212 10^3/uL (150-450); Red Blood Count 4.51 10^6/uL (4.20-5.40); White Blood Count 4.2 10^3/uL (4.0-11.0)
[2025-05-16 10:29] LABS: Alanine Aminotransferase 33 U/L (14-59); Albumin Globulin Ratio 1.2; Albumin Level 4.8 g/dL (3.4-5.0); Alkaline Phosphatase 75 U/L (46-116); Anion Gap 14.7; Aspartate Amino Transferase 25 U/L (15-37); Blood Urea Nitrogen 23.0 mg/dL (7.0-18.0); Calcium 9.3 mg/dL (8.5-10.1); Carbon Dioxide 27.3 mmol/L (21.0-32.0); Chloride 101 mmol/L (98-107); Cholesterol 190 mg/dL (<=200); Estimated GFR (African America >60 (>=60 mL/min/1.73m^2); Estimated GFR (Non-African Ame >60 (>=60 mL/min/1.73m^2); Globulin 3.9 g/dL; Glucose 78 mg/dL (74-106); HDL Cholesterol 71 mg/dL (40-60); Iron 103.0 ug/dL (50.0-170.0); Percent Iron Saturation 33.8 %; Potassium 4.0 mmol/L (3.5-5.1); Sodium 139 mmol/L (136-145); Thyroid Stimulating Hormone 2.614 uIU/mL (0.358-3.740); Total Iron Binding Capacity 305.0 ug/dL (250.0-450.0); Total Protein 8.7 g/dL (6.4-8.2); Triglycerides 49 mg/dL (<=150); VLDL CHOLESTEROL 9.8 mg/dL
[2025-05-16 11:01] LABS: Ferritin 139.0 ng/mL (8.0-252.0)
[2025-05-17 04:09] LABS: Sex Horm Binding Glob, Serum 74.8 nmol/L (24.6-122.0)
== END 2025-05-16 08:31 | disposition home or self-care (01) ==
LOC: LAB 08:31
PROVIDERS: PCP Family Medicine
DX: L65.9 Nonscarring hair loss, unspecified (principal)
CPT/HCPCS: 36415; 80053; 80061; 82670; 82728; 83036; 83540; 83550; 84270; 84402; 84403; 84439; 84443; 84630; 85025